=== PATIENT | male | born 1980 | race Two or more races ===

== ENCOUNTER 2022-09-11 16:43 | Inpatient (IN) | payer MEDICAID ==
[2022-09-11] VITALS (16 sets, daily range): BP systolic 82–206; BP diastolic 47–154
[~2022-09-11] VITALS: Ht 175.3 cm; Wt 73.9 kg
[2022-09-11] MEDS ORDERED: IV NS 0.9% 1,000 ML BAG IV ONE ×2 (17:00→19:00)
[2022-09-11] MEDS ORDERED: NOREPINEPHRINE 8 MG in IV NS 0.9% 250 ML IV ONE (17:00)
--- NOTE | 2022-09-11 17:40 | NUR ---
UA AND COVID SWAB SENT TO LAB
[2022-09-11 17:51] LABS: ABG BASE EXCESS -4.3 mmol/L; ABG PCO2 60.2 mmHg (35.0-45.0); ABG PH 7.212 (7.350-7.450); ABG PO2 119.8 mmHg (75.0-100.0); COHb 0.2 % (0.5-1.5); MetHb 0.5 % (0.0-1.5); O2Hb 96.5 % (94.0-97.0); PEEP,BG 5 cm H2O; SITE, ABG Left Radial; VT, ABG 500 mL
[2022-09-11 17:58] LABS: BASOPHILS % (AUTO) 0.2 % (0.0-2.0); EOSINOPHILS % (AUTO) 2.4 % (0.0-6.0); HEMATOCRIT 26 % (39-51); HEMOGLOBIN 7.9 g/dL (13.5-17.5); LYMPHOCYTES # (AUTO) 1.1 K/uL (0.8-4.8); LYMPHOCYTES % (AUTO) 15.6 % (20.0-44.0); MEAN CORPUSCULAR HGB CONC 30 g/dl (31.0-36.0); MEAN CORPUSCULAR VOLUME 88 fL (80-96); MONOCYTES # (AUTO) 0.4 K/uL (0.1-1.30); MONOCYTES % (AUTO) 5.5 % (2.0-12.0); NEUTROPHILS # (AUTO) 5.4 K/uL (1.8-8.9); NEUTROPHILS % (AUTO) 76.3 % (43.0-81.0); PLATELET COUNT (AUTO) 314 K/uL (150-450); WHITE BLOOD COUNT (AUTO) 7.1 K/uL (4.3-11.0)
--- NOTE | 2022-09-11 18:05 | NUR ---
BROTHER JUVE [phone] CALLED AND ASKED TO NOTIFIED WHEN HE CAN COME TO VISIT PATIENT
[2022-09-11 18:17] LABS: ALANINE AMINOTRANSFERASE 41 U/L (12-78); ALBUMIN 2.2 g/dL (3.4-5.0); ALKALINE PHOSPHATASE 119 U/L (46-116); ASPARTATE AMINOTRANSFERASE 21 U/L (15-37); BILIRUBIN,DIRECT 0.1 mg/dL (0.0-0.2); BILIRUBIN,TOTAL 0.2 mg/dL (0.2-1.0); CALCIUM, SERUM 9.2 mg/dL (8.5-10.1); CARBON DIOXIDE 25 mmol/L (21-32); CHLORIDE 103 mmol/L (98-107); CREATININE 0.9 mg/dL (0.6-1.3); GLUCOSE 191 mg/dL (74-106); POTASSIUM 4.1 mmol/L (3.5-5.1); SODIUM SERUM 135 mmol/L (136-145); TOTAL PROTEIN, SERUM 6.5 g/dL (6.4-8.2); UREA NITROGEN, BLOOD 45 mg/dL (7-18)
[2022-09-11 18:18] LABS: BILIRUBIN,URINE NEGATIVE (NEGATIVE); COLOR,URINE YELLOW (YELLOW); LEUKOCYTE ESTERASE ,URINE NEGATIVE (NEGATIVE); NITRITE, URINE NEGATIVE (NEGATIVE); PROTEIN,URINE 1+ mg/dl (NEGATIVE); UGLUCOSE NEGATIVE (NEGATIVE); UROBILINOGEN,URINE 0.2 EU/dL (0.2)
--- NOTE | 2022-09-11 18:25 | NUR ---
PATIENT CAME IN UN RESPONSIVE WHILE BEEN BAGGED BY THE PARAMEDICS. PATIENT WAS PLACED ON THE VENTILATOR PER DOCTOR ORDER. PATIENT CAME IN WITH TRACH SHILEY 7.[address] AND SECURED FROM A SUB ACUTE. Addendum: 09/11/22 at 1828 by HUMERA VIVEROS RT Amended: Links added.
[2022-09-11] MEDS ORDERED: CEFTRIAXONE 1GM BAG (ER ONLY) 50 ML IV ONE ×2 (18:30→19:38)
[2022-09-11 18:51] LABS: RBC,URINE TOO NUMEROUS TO COUN /HPF (0-2); WBC,URINE 0-2 /HPF (0-3)
[2022-09-11 18:52] LABS: BACTERIA,URINE RARE /HPF (None Seen); COARSE GRANULAR CASTS,URINE Few /LPF (None Seen); HYALINE CASTS, URINE Few /LPF (None Seen); SQUAMOUS EPITHELIAL CELL,UR 0-2 /HPF (None Seen)
--- NOTE | 2022-09-11 19:19 | NUR ---
RN LAND ACQUISITION SPECIALIST NOTIFIED OF CRASH CART USE, CART DRAWER CURRENTLY PRESENT ON UNIT
[2022-09-11] MEDS ORDERED: PIPERACILLIN /TAZOBACTAM 3.375 G in IV D5W 50 ML IV ONE (19:30)
[2022-09-11] MEDS ORDERED: VANCOMYCIN 1 GM in IV D5W 250 ML IV ONE (19:30)
--- NOTE | 2022-09-11 19:47 | NUR ---
SHAN #[id number] MIDLINE S/L INSERTED BY MIDLINE NURSE.
--- NOTE | 2022-09-11 19:50 | NUR ---
JUVE (BROTHER) RACHEL (FRIEND) [phone]
[2022-09-11 19:51] LABS: BAND % (MANUAL) 1 % (0.0-5.0); EOSINOPHILS % (MANUAL) 3 % (0-4); LYMPHOCYTES % (MANUAL) 16 % (16-48); MONOCYTES % (MANUAL) 4 % (0-11.0); NEUTROPHILS % (MANUAL) 76 (42-76)
[2022-09-11] MEDS ORDERED: VANCOMYCIN 1 GM VIAL ONE (19:51)
[2022-09-11] MEDS ORDERED: PIPERACILLIN /TAZOBACTAM 3.375 G VIAL IV ONE (19:52)
[2022-09-11] MEDS ORDERED: ALBUTEROL FS 2.5 MG/0.5 ML VIAL.NEB NEB PRN (20:00)
[2022-09-11] MEDS ORDERED: ONDANSETRON HCL/PF 4 MG/2 ML VIAL IVP PRN (20:00)
[2022-09-11] MEDS ORDERED: DEXTROSE 50%-WATER 50 ML DISP.SYRIN IV PRN (20:00)
[2022-09-11] MEDS ORDERED: INSULIN REGULAR, HUMAN 100 UNIT/ML 3 ML VIAL SQ PRN (20:00)
[2022-09-11] MEDS ORDERED: MORPHINE SULFATE INJ 2 MG/ML DISP.SYRIN IV PRN (20:00)
[2022-09-11] MEDS ORDERED: ACETAMINOPHEN 325 MG TABLET PO PRN (20:00)
--- NOTE | 2022-09-11 20:25 | NUR ---
PT RETURNED TO ER [address]
--- NOTE | 2022-09-11 21:12 | NUR ---
REPORT GIVEN TO ED CLERK GUIDE FOR [place]
[2022-09-11] MEDS ORDERED: CEFEPIME 2 GM in IV D5W 100 ML IV SCH (21:30)
[2022-09-11] MEDS ORDERED: VANCOMYCIN 1 GM in IV D5W 250ml IV ONE (21:30)
--- NOTE | 2022-09-11 21:35 | NUR ---
PT TRANSFERRED TO ICU 255 VIA ACLS PROTOCOL. ON LEVO DRIP AT 0.05MCG/KG/HR. CARLOS (EMILY) [phone] AWARE OF TRANSFER.
--- NOTE | 2022-09-11 21:46 | NUR ---
RT NOTE PT IS TRACH'D VIA GocellaLEY 7.5 TRACH TUBE. RECEIVED ON VENT W SETTINGS: AC 15,550,100%,+5. PT TRANSPORTED TO CT. PT ALSO TRANSFERRED TO ICU 255. VENT IS PLUGGED INTO RED OUTLET. ALARMS ARE SET. TRACH IS SECURE. PT SUCTIONED FOR SMALL THICK SECRETIONS. Addendum: 09/11/22 at 2149 by JOSS WILSON RT Amended: Links added.
[2022-09-12] VITALS (98 sets, daily range): BP systolic 67–202; BP diastolic 40–138
[2022-09-12] MEDS ORDERED: BLOOD SUGAR DIAGNOSTIC 1 EACH STRIP IN SCH
[2022-09-12] MEDS ORDERED: IPRATROPIUM/ALBUTEROL INHALER IH SCH
[2022-09-12] MEDS ORDERED: VANCOMYCIN 1 GM VIAL ONE (00:07)
[2022-09-12] MEDS ORDERED: FUROSEMIDE 40 MG/4 ML VIAL IV ONE (00:30)
[2022-09-12] MEDS ORDERED: CEFEPIME 1 GM VIAL ONE (00:32)
[2022-09-12 00:40] LABS: ABG BASE EXCESS 0.6 mmol/L; ABG OXYGEN SATURATION 97.8 % (92.0-98.5); ABG PCO2 44.9 mmHg (35.0-45.0); ABG PO2 110.9 mmHg (75.0-100.0); AaDO2 557.2 mmHg; COHb 0.3 % (0.5-1.5); MetHb 0.2 % (0.0-1.5); O2Hb 97.3 % (94.0-97.0); PEEP,BG 8 cm H2O; SITE, ABG Left Radial; VENT MODE, BG AC 20 550 100% +8; VT, ABG 550 mL
[2022-09-12] MEDS: ALBUTEROL FS 2.5 MG/0.5 ML VIAL.NEB NEB SCH ×4 (01:13→20:00)
[2022-09-12] MEDS: IPRATROPIUM NEB FS 0.5 MG/2.5 ML AMPUL.NEB IH SCH ×4 (01:13→19:59)
[2022-09-12] MEDS ORDERED: DOPamine 400 MG/D5W 250 ML RTU BAG IV PRN (01:30)
[2022-09-12 04:55] LABS: BASOPHILS % (AUTO) 0.2 % (0.0-2.0); EOSINOPHILS % (AUTO) 1.1 % (0.0-6.0); HEMATOCRIT 28 % (39-51); HEMOGLOBIN 9.1 g/dL (13.5-17.5); LYMPHOCYTES # (AUTO) 0.9 K/uL (0.8-4.8); LYMPHOCYTES % (AUTO) 8.3 % (20.0-44.0); MEAN CORPUSCULAR HGB CONC 32 g/dl (31.0-36.0); MEAN CORPUSCULAR VOLUME 83 fL (80-96); MONOCYTES # (AUTO) 0.6 K/uL (0.1-1.30); MONOCYTES % (AUTO) 5.4 % (2.0-12.0); NEUTROPHILS # (AUTO) 9.1 K/uL (1.8-8.9); PLATELET COUNT (AUTO) 339 K/uL (150-450); WHITE BLOOD COUNT (AUTO) 10.7 K/uL (4.3-11.0)
[2022-09-12 05:19] LABS: ALBUMIN 2.3 g/dL (3.4-5.0); BILIRUBIN,TOTAL 0.2 mg/dL (0.2-1.0); CALCIUM, SERUM 9.3 mg/dL (8.5-10.1); CREATININE 0.6 mg/dL (0.6-1.3); MAGNESIUM 2.1 mg/dL (1.8-2.4); PHOSPHORUS 3.9 mg/dL (2.5-4.9); POTASSIUM 3.9 mmol/L (3.5-5.1)
--- NOTE | 2022-09-12 05:56 | NUR ---
CENTER MEDICAL SPECIALIST PT WAS ADMITTED FROM ER WITH DIAGNOSIS SEPSIS, PNA. PT IS TRACH, VENT, PEG PT. VENT SETTING-AC 20, TV 550, FIO2-100%, PEEP 8. BILAT. RHONCHI, SMALL AMT. OF WHITISH SECRETION. PT IS OBTUNDED, RESPONSE TO PAINFUL STIMULI ONLY. SCOPE-SR-SB. PT IS ON DOPAMINE DRIP D/T HYPOTENSION & BRADYCARDIA. UNFORTUNATELY DOPAMINE DRIP IV FLOW SHEET CHARTING CAN NOT BE DONE. F/C DRAINS LARGE AMT. OF CLOUDY WITH SEDIMENT YELLOW URINE. PT GOT LARGE PASTY BROWNISH COLOR BM. PT IS MEDICATED ORDERED. LARGE INFECTED WOUND ON SACRAL AREA, PICTURE TAKEN, A NEW DRESSING APPLIED. WILL CONTINUE CLOSE MONITORING.
[2022-09-12] MEDS: DOPamine 400 MG in IV D5W 250 ML IV PRN ×2 (07:00→16:07)
[2022-09-12] MEDS ORDERED: DOPamine 400 MG/D5W 250 ML RTU BAG IV ONE ×2 (07:00)
[2022-09-12] MEDS: CEFEPIME 2 GM in IV D5W 100 ML IV SCH ×3 (07:29→20:19)
[2022-09-12] MEDS ORDERED: CEFEPIME 2 GM in IV D5W 100 ML IV SCH ×4 (08:00→12:00)
--- NOTE | 2022-09-12 08:00 | NUR ---
RN NOTES RECEIVED PATIENT TRACHEA/VENT DEPENDENT, VENT SETTING-AC 20, TV 550, FIO2-80%, PEEP 5. PATIENT GETTING ECHO AT THIS TIME BEDSIDE EF- 55-60%. ABG DONE, NO ACUTE RESPIRATORY DISTRESS, PATIENT HAS OF WHITISH SECRETION, EYES OBTUNDED, RESPONSE TO PAINFUL STIMULI ONLY. PT IS ON DOPAMINE 5 MCG/KG/MIN DRIP D/T HYPOTENSION & BRADYCARDIA. TORRES DRAINING WITH SEDIMENT URINE OUTPUT. PATIENT HAS LARGE INFECTED WOUND ON SACRAL AREA DRESSING INTACT, ASSIST TURN AND REPOSTION Q 2 HR, PATIENT ON ANY HUGGER T-97F. WILL MONITORING.
--- NOTE | 2022-09-12 08:30 | NUR ---
RN NOTES PATIENT FAMILY NEXT TO THE BED, PATIENT FULL CODE, SEEN RAIL CAR MAINTENANCE MECHANIC , AND GET CHANGE SETTING FI02-40%, PEEP-5. SUCTION MOUTH CARE DONE. WILL FOLLOW UP.
[2022-09-12] MEDS ORDERED: ENOX40DI SQ (08:35)
[2022-09-12] MEDS ORDERED: ACET-2605 GT (08:35)
[2022-09-12] MEDS ORDERED: ALBU8.5H8 IH ×2 (08:35)
[2022-09-12] MEDS ORDERED: COLL30OI TP (08:35)
[2022-09-12] MEDS ORDERED: MULT-447 GT (08:35)
[2022-09-12] MEDS ORDERED: POVI3780 TP (08:35)
[2022-09-12] MEDS ORDERED: XEROFORM TD (08:35)
[2022-09-12] MEDS ORDERED: COLLAGEN TD (08:35)
[2022-09-12] MEDS ORDERED: POLY17PO4 GT (08:35)
[2022-09-12] MEDS ORDERED: ACET650S26 GT (08:35)
[2022-09-12] MEDS ORDERED: ASCO-340 GT (08:35)
[2022-09-12] MEDS ORDERED: HEPA50007 SQ (08:35)
[2022-09-12] MEDS ORDERED: LEVE100S GT (08:35)
[2022-09-12] MEDS ORDERED: CHLO473M5 MM (08:35)
[2022-09-12] MEDS ORDERED: DOCU-141 GT (08:35)
[2022-09-12] MEDS ORDERED: ZINC220C6 GT (08:35)
[2022-09-12] MEDS ORDERED: LACT100027 GT (08:35)
[2022-09-12] MEDS ORDERED: CLON0.1T GT (08:35)
[2022-09-12] MEDS ORDERED: FAMO20TA8 GT (08:35)
[2022-09-12] MEDS ORDERED: LISI20TA30 GT (08:35)
[2022-09-12] MEDS ORDERED: FERR300L GT (08:35)
[2022-09-12] MEDS ORDERED: NA P133E RC (08:35)
[2022-09-12] MEDS ORDERED: BISA10SU11 RC (08:35)
--- NOTE | 2022-09-12 11:32 | NUR ---
RN NOTES SEEN PATIENT VIA HOSPITALIST Dr BELL . PER HOSPITALIST SPOKE FAMILY MEMBERS, AND EXPLAINED PLAN OF CARE.
[2022-09-12] MEDS: VANCOMYCIN 1 GM in IV D5W 250 ML IV SCH ×2 (13:06→20:35)
--- NOTE | 2022-09-12 18:30 | NUR ---
RN NOTES PM CARE DONE, SUCTION, MOUTH CARE, NO ACUTE RESPIRATORY DISTRESS, VSS, TOLERATING SETTING WELL. INFUSING DOPAMINE 5 MCG/KG/MIN. URINE OUTPUT WAS 680 ML. ASSIST TURN AND REPOSTION Q 2 HR. ENDORSED ONCOMING NURSE [place].
[2022-09-13] VITALS (88 sets, daily range): BP systolic 61–178; BP diastolic 31–105
[2022-09-13] MEDS: IPRATROPIUM NEB FS 0.5 MG/2.5 ML AMPUL.NEB IH SCH ×4 (01:46→19:54)
[2022-09-13] MEDS: ALBUTEROL FS 2.5 MG/0.5 ML VIAL.NEB NEB SCH ×4 (01:46→19:54)
[2022-09-13] MEDS: DOPamine 400 MG in IV D5W 250 ML IV PRN ×2 (03:22→20:46)
[2022-09-13] MEDS: CEFEPIME 2 GM in IV D5W 100 ML IV SCH ×3 (04:08→20:23)
[2022-09-13 04:12] LABS: BASOPHILS # (AUTO) 0.1 K/uL (0.0-0.2); BASOPHILS % (AUTO) 0.7 % (0.0-2.0); EOSINOPHILS % (AUTO) 3.6 % (0.0-6.0); HEMATOCRIT 25 % (39-51); HEMOGLOBIN 8.1 g/dL (13.5-17.5); LYMPHOCYTES # (AUTO) 0.7 K/uL (0.8-4.8); LYMPHOCYTES % (AUTO) 10.8 % (20.0-44.0); MEAN CORPUSCULAR HGB CONC 33 g/dl (31.0-36.0); MEAN CORPUSCULAR VOLUME 82 fL (80-96); MONOCYTES # (AUTO) 0.4 K/uL (0.1-1.30); MONOCYTES % (AUTO) 6.5 % (2.0-12.0); NEUTROPHILS # (AUTO) 5.3 K/uL (1.8-8.9); NEUTROPHILS % (AUTO) 78.4 % (43.0-81.0); PLATELET COUNT (AUTO) 353 K/uL (150-450); RED BLOOD CELL COUNT(AUTO) 3.01 MIL/uL (4.5-6.0); WHITE BLOOD COUNT (AUTO) 6.8 K/uL (4.3-11.0)
[2022-09-13] MEDS: VANCOMYCIN 1 GM in IV D5W 250 ML IV SCH (05:00)
[2022-09-13 05:04] LABS: CALCIUM, SERUM 9.2 mg/dL (8.5-10.1); CREATININE 0.6 mg/dL (0.6-1.3); MAGNESIUM 1.9 mg/dL (1.8-2.4); PHOSPHORUS 3.5 mg/dL (2.5-4.9); POTASSIUM 3.6 mmol/L (3.5-5.1)
[2022-09-13] MEDS: IV NS 0.9% 250 ML IV PRN (05:06)
--- NOTE | 2022-09-13 07:49 | NUR ---
WOUND CARE CONSULT: PT PRESENTS WITH SACRAL FOUL PURULENT UNSTAGEABLE PRESSURE ULCER, OCCIPITAL AND LEFT EAR DEEP TISSUE INJURIES, DRY SCABS/SCARRING TO BACK AND SCARRING TO BILATERAL ANKLES WITH GENERALIZED EDEMA, ALL PRESENT ON ADMISSION. DR STOKES CALLED FOR SURGICAL CONSULT. DISCUSSED SKIN PROTECTION WITH NURSING STAFF. PT IS ON HA ISOFLEX LOW AIRLOSS BED. IN AGREEMENT WITH PLAN OF CARE. Addendum: 09/13/22 at 0751 by KINSEY SANTANA WNDNU Amended: Links added.
--- NOTE | 2022-09-13 08:00 | NUR ---
RN NOTES RECEIVED PATIENT AWAKE,EYES OPEN, TRACHEA/VENT DEPENDENT, SETTING FIO2-40%, PEEP-5, SR -66 ON BEDSIDE MONITOR, PATIENT ON DOPAMINE DRIP 5 MG/ML/HR. ASSIST TURN AND REPOSTION Q 2HR, PATIENT HAS LATS OF ORAL SECRETION, SUCTION , MOUTH CQARE DONE. SEEN PATIENT VIA WOUND NURSE.PATIENT HAS GENERALIZED EDEMA. WILL FOLLOW UP.
--- NOTE | 2022-09-13 08:11 | NUR ---
rn notes get order via Dr Sanz start tub feeding Jevity @20 ml/hr. order taken and carried out.
[2022-09-13] MEDS ORDERED: DAKINS QUARTER STRENGTH (0.125%) 480 ML BOTTLE TOP SCH (09:00)
[2022-09-13] MEDS: Z GUARD REMEDY 4 OZ OINT TP SCH (09:28)
[2022-09-13] MEDS ORDERED: ATROPINE SULFATE 1 MG/10 ML DISP.SYRIN IV ONE (10:00)
--- NOTE | 2022-09-13 10:00 | NUR ---
rn notes held dopamine per Dr Landry's order bp 122/80, p-62, r-23.
[2022-09-13] MEDS ORDERED: NALOXONE HCL 0.4 MG/ML AMPUL IV ONE (10:04)
[2022-09-13] MEDS ORDERED: DEXTROSE 50%-WATER 50 ML VIAL IV ONE (10:04)
--- NOTE | 2022-09-13 12:00 | NUR ---
rn notes restarted dopamine drip back 5mg/kg/min because low bp 68/41, p-70.
[2022-09-13] MEDS: VANCOMYCIN 1.25 GM in IV D5W 250 ML IV SCH ×2 (12:21→23:35)
[2022-09-13] MEDS ORDERED: POLYETHYLENE GLYCOL 3350 17 GM POWD.PACK GT PRN (12:30)
[2022-09-13] MEDS ORDERED: NA PHOS,M-B/NA PHOS,DI-BA 1 EA ENEMA RC PRN (12:30)
[2022-09-13] MEDS: JEVITY 1.2 CAL 1,000 ML BOTTLE GT PRN (12:32)
[2022-09-13] MEDS: ENOXAPARIN SODIUM 40 MG/0.4 ML DISP.SYRIN SQ SCH (13:49)
[2022-09-13] MEDS: ASCORBIC ACID 500 MG TABLET GT SCH (17:31)
[2022-09-13] MEDS: FERROUS SULFATE (325 MG) 325 MG/TAB TABLET GT SCH (17:31)
--- NOTE | 2022-09-13 18:40 | NUR ---
RN NOTES PATIENT PM CARE DONE, SUCTION, DUE MEDICATION ADMINISTERED, TOLERATING VENT SETTING WELL, NO ACUTE RESPIRATORY DISTRESS,INFUSING DOPAMINE 5 MG/KG/MIN, AND RUNNING JEVITY 20 ML/HR INTACT. KEEP HOB ELEVATED FOR ASPIRATION PRECAUTION. ASSIST TURN AND REPOSITION Q 2 HR. ENDORSED ONCOMING NURSE FOLLOW PLAN OF CARE.
--- NOTE | 2022-09-13 19:30 | NUR ---
RN OPENING NOTES RECEIVED PATIENT TRACHEA/VENT DEPENDENT, VENT SETTING-AC 20, TV 550, FIO2-33%, PEEP 5. NO ACUTE RESPIRATORY DISTRESS, EYES OBTUNDED, RESPONSE TO PAINFUL STIMULI. PT IV ACCESS ON SHAN ML ON DOPAMINE 5 MCG/KG/MIN DRIP D/T HYPOTENSION & BRADYCARDIA. TORRES CATHETER DRAINING WITH URINE OUTPUT. PATIENT HAS LARGE INFECTED WOUND ON SACRAL AREA DRESSING INTACT, ASSIST TURN AND REPOSITION Q2 HR, SAFETY MEASURES IN PLACE, FAMILY MEMBER AT BEDSIDE, WILL CONTINUE TO MONITOR THROUGHOUT THE SHIFT.
[2022-09-13] MEDS: LEVETIRACETAM SOL (5 ML) 100 MG/ML UDC GT SCH (20:22)
[2022-09-13] MEDS: FAMOTIDINE (20 MG) 20 MG TABLET GT SCH (20:22)
--- NOTE | 2022-09-13 21:30 | NUR ---
RN NOTE NOTED PT WITH 200 CC RESIDUAL, ZOFRAN GIVEN. INFORMED MUSHROOM PRESS OPERATOR MD, ORDERED TO HELD FEEDING FOR NOW, START 20 ML/HR IN AM AND PLACE PT ON LOW INTERMITTENT SUCTION. MD AWARE PT HAD NO IVF AT THIS TIME.
[2022-09-13] MEDS: DAKINS QUARTER STRENGTH (0.125%) 480 ML BOTTLE TOP SCH (21:46)
[2022-09-14] VITALS (58 sets, daily range): BP systolic 76–151; BP diastolic 32–102
--- NOTE | 2022-09-14 | NUR ---
RN NOTE TELEPHONE CONSENT OBTAINED FOR SERIAL DEBRIDEMENT ON SACRAL AND SCALP. SPOKE TO CONNOR APONTE (BROTHER), WITNESSED BY PRINCESS WILSON.
[2022-09-14] MEDS: ALBUTEROL FS 2.5 MG/0.5 ML VIAL.NEB NEB SCH ×4 (01:24→20:04)
[2022-09-14] MEDS: IPRATROPIUM NEB FS 0.5 MG/2.5 ML AMPUL.NEB IH SCH ×4 (01:24→20:04)
[2022-09-14 03:53] LABS: BASOPHILS % (AUTO) 0.2 % (0.0-2.0); EOSINOPHILS % (AUTO) 3.7 % (0.0-6.0); HEMATOCRIT 26 % (39-51); HEMOGLOBIN 8.5 g/dL (13.5-17.5); LYMPHOCYTES # (AUTO) 1.1 K/uL (0.8-4.8); LYMPHOCYTES % (AUTO) 16.6 % (20.0-44.0); MEAN CORPUSCULAR HGB CONC 33 g/dl (31.0-36.0); MEAN CORPUSCULAR VOLUME 80 fL (80-96); MONOCYTES # (AUTO) 0.6 K/uL (0.1-1.30); MONOCYTES % (AUTO) 8.7 % (2.0-12.0); NEUTROPHILS # (AUTO) 4.7 K/uL (1.8-8.9); NEUTROPHILS % (AUTO) 70.8 % (43.0-81.0); PLATELET COUNT (AUTO) 388 K/uL (150-450); RED BLOOD CELL COUNT(AUTO) 3.22 MIL/uL (4.5-6.0); WHITE BLOOD COUNT (AUTO) 6.7 K/uL (4.3-11.0)
[2022-09-14 04:26] LABS: CALCIUM, SERUM 9.4 mg/dL (8.5-10.1); CREATININE 0.6 mg/dL (0.6-1.3); MAGNESIUM 1.6 mg/dL (1.8-2.4); PHOSPHORUS 3.8 mg/dL (2.5-4.9); POTASSIUM 3.4 mmol/L (3.5-5.1)
[2022-09-14] MEDS: CEFEPIME 2 GM in IV D5W 100 ML IV SCH ×3 (05:16→21:00)
[2022-09-14] MEDS: IV NS 0.9% 250 ML IV PRN (05:16)
[2022-09-14] MEDS ORDERED: LIDOCAINE 1%-EPI 1:100,000 50 ML VIAL IJ ONE (06:00)
[2022-09-14] MEDS ORDERED: SILVER NITRATE APPLICATOR 1 EA BOX TP SCH (06:00)
--- NOTE | 2022-09-14 06:42 | NUR ---
RN CLOSING NOTES PATIENT ON BED OBTUNDED, RESPONSIVE TO PAINFUL STIMULI. VENT SETTING-AC 20, TV 550, FIO2-40%, PEEP 5 TOLERATING WELL, NO ACUTE RESPIRATORY DISTRESS, PT IV ACCESS ON JAMES ML AND SHAN ML RUNNING DOPAMINE 5 MCG/KG/MIN DRIP D/T HYPOTENSION & BRADYCARDIA. GT FEEDING OF JEVITY AT 20 ML/HR RESTARTED AT 0600 PER MD ORDER, N0 RESIDUAL NOTED AT THIS TIME, TORRES CATHETER DRAINING WITH URINE OUTPUT. ALL DUE MEDS GIVEN, KEPT DRY AND CLEAN, TURN AND REPOSITION Q2 HR, SAFETY MEASURES IN PLACE, WILL ENDORSE TO AM SHIFT NURSE FOR CONTINUITY OF CARE.
--- NOTE | 2022-09-14 07:30 | NUR ---
RN OPENING NOTE PT RECEIVED IN BED WITH HOB >30 DEGREES. PT IS ON MECHANICAL VENT WITH ALL PRESCRIBED SETTINGS TOLERATING WELL O2 SAT 97%. PT IS OBTUNDED AND OPENS EYES PERIODICALLY. PEG IS IN PLACE WITH POSITIVE PLACEMENT INFUSING WITH JEVITY 1.2 @20ML/HR; FC IS IN PLACE DRAINING URINE TO GRAVITY. IV ACCESS R UA MIDLINE INFUSING WITH DOPAMINE @5MCG/HR. BED IS LOCKED IN LOWEST POSITION X2 BED RAILS UP AND ALL HOSPITAL SAFETY MEASURES ARE IN PLACE. WILL CONTINUE TO MONITOR THIS SHIFT.
[2022-09-14] MEDS: ENOXAPARIN SODIUM 40 MG/0.4 ML DISP.SYRIN SQ SCH (08:03)
[2022-09-14] MEDS ORDERED: ENOXAPARIN SODIUM 40 MG/0.4 ML DISP.SYRIN SQ SCH (09:00)
[2022-09-14] MEDS ORDERED: MAGNESIUM OXIDE 400 MG TABLET PO ONE (09:00)
[2022-09-14] MEDS: Z GUARD REMEDY 4 OZ OINT TP SCH (09:06)
[2022-09-14] MEDS: METOCLOPRAMIDE HCL 10 MG/2 ML VIAL IV SCH ×3 (09:09→21:00)
[2022-09-14] MEDS: ZINC SULFATE 220 MG CAPSULE GT SCH (09:09)
[2022-09-14] MEDS: LEVETIRACETAM SOL (5 ML) 100 MG/ML UDC GT SCH ×2 (09:09→21:01)
[2022-09-14] MEDS: DAKINS QUARTER STRENGTH (0.125%) 480 ML BOTTLE TOP SCH (09:10)
[2022-09-14] MEDS: FAMOTIDINE (20 MG) 20 MG TABLET GT SCH ×2 (09:10→21:01)
[2022-09-14] MEDS: MULTIVIT W/MINERALS 1 TAB TABLET GT SCH (09:10)
[2022-09-14] MEDS: ACETYLCYSTEINE 10% SOLN 400 MG/4 ML VIAL NEB SCH ×3 (09:30→23:13)
[2022-09-14] MEDS ORDERED: POTASSIUM CHLORIDE 20 MEQ POWDER PACKET NG SCH (09:30)
--- NOTE | 2022-09-14 09:45 | NUR ---
DAISY RN CHANGING TIME REPORT NOTE MOVED FROM DAISY TO ICU TOOK OVER THE PATIENT FROM RN JULIUS. PATIENT ON BED OBTUNDED, VENT SETTING-AC 20, TV 550, FIO2-40%, PEEP 5 TOLERATING WELL, NO ACUTE RESPIRATORY DISTRESS, PT IV ACCESS ON JAMES ML AND SHAN ML RUNNING DOPAMINE 5 MCG/KG/MIN DRIP D/T HYPOTENSION & BRADYCARDIA. GT FEEDING OF JEVITY AT 20 ML/HR. TORRES CATHETER DRAINING. SAFETY MEASURES IN PLACE, WILL CONTINUE THE CARE.
--- NOTE | 2022-09-14 10:00 | NUR ---
RN NOTE: REPORT GIVEN TO COIL TESTER PT REMAINS IN ICU AND REPORT GIVEN TO STEVE JACOME.
[2022-09-14] MEDS: DOPamine 400 MG in IV D5W 250 ML IV PRN (11:34)
--- NOTE | 2022-09-14 14:00 | NUR ---
RN NOTE WOUND DEBRIDEMENT DONE AT PATIENT'S OCCIPITAL AND SACRUM AREA BY CADE AT 1400
[2022-09-14] MEDS: VANCOMYCIN 1.25 GM in IV D5W 250 ML IV SCH ×2 (14:36→23:00)
--- NOTE | 2022-09-14 17:30 | NUR ---
RN NOTE PER DR. ZUÑIGA BP 84/37 IS JONATHAN FOR PATIENT, DR. ZUÑIGA ORDERED TO DC THE DOPAMINE. YENY THE CHARGE NURSE STOPPED THE DOPAMINE AT 1730.
[2022-09-14] MEDS: FERROUS SULFATE (325 MG) 325 MG/TAB TABLET GT SCH (18:07)
[2022-09-14] MEDS: ASCORBIC ACID 500 MG TABLET GT SCH (18:07)
--- NOTE | 2022-09-14 19:00 | NUR ---
RN CLOSING NOTE PATIENT ON BED OBTUNDED, VENT SETTING-AC 20, TV 550, FIO2-40%, PEEP 5 TOLERATING WELL, NO ACUTE RESPIRATORY DISTRESS, PT IV ACCESS ON JAMES ML AND SHAN ML RUNNING TKO 10ML/HR. DOPAMINE DC BY DR. ZUÑIGA AT 1730 BY YENY THE CHARGE NURSE. PER DR. ZUÑIGA BP 84/37 IT IS JONATHAN FOR PATIENT, WILL LET THE PALLETIZER OPERATOR NURSE KNOW ABOUT THE BP MONITORING. GT FEEDING OF JEVITY AT 20 ML/HR. TORRES CATHETER DRAINING. SAFETY MEASURES IN PLACE, WILL ENDORSE THE PATIENT TO THE PALLETIZER OPERATOR NURSE FOR [place].
--- NOTE | 2022-09-14 20:00 | NUR ---
ICU NOTES Received patient obtunded on full vent support as prescribed.Dx:SEPSIS,PNA,ACUTE RESPIRATORY FAILURE.H/O VTDRF,ENCEPHALOPATHY,BRAIN ANEURYSM,SAH,HTN and DYSPHAGIA S/P PEG.Per monitor SR 70's-80's.GT feeding Jevity in progress.No residual noted.Maintain HOB elevated.IVF NS at TKO infusing via SHAN ML site intact.FC to gravity.Turned and repositioned.No acute distress noted.Continue to monitor.
[2022-09-15] VITALS (23 sets, daily range): BP systolic 76–122; BP diastolic 34–75
--- NOTE | 2022-09-15 | NUR ---
ICU NOTES FIRST STEP mattress applied.Ptient turned and repositioned to comfort.
[2022-09-15] MEDS: IPRATROPIUM NEB FS 0.5 MG/2.5 ML AMPUL.NEB IH SCH ×4 (02:18→20:03)
[2022-09-15] MEDS: ALBUTEROL FS 2.5 MG/0.5 ML VIAL.NEB NEB SCH ×4 (02:18→20:03)
[2022-09-15 04:43] LABS: BASOPHILS % (AUTO) 0.4 % (0.0-2.0); EOSINOPHILS % (AUTO) 2.4 % (0.0-6.0); HEMATOCRIT 24 % (39-51); HEMOGLOBIN 7.8 g/dL (13.5-17.5); LYMPHOCYTES # (AUTO) 1.2 K/uL (0.8-4.8); LYMPHOCYTES % (AUTO) 17.5 % (20.0-44.0); MEAN CORPUSCULAR HGB CONC 33 g/dl (31.0-36.0); MEAN CORPUSCULAR VOLUME 80 fL (80-96); MONOCYTES # (AUTO) 0.6 K/uL (0.1-1.30); MONOCYTES % (AUTO) 9.1 % (2.0-12.0); NEUTROPHILS # (AUTO) 4.9 K/uL (1.8-8.9); NEUTROPHILS % (AUTO) 70.6 % (43.0-81.0); PLATELET COUNT (AUTO) 352 K/uL (150-450); RED BLOOD CELL COUNT(AUTO) 2.95 MIL/uL (4.5-6.0)
[2022-09-15] MEDS: METOCLOPRAMIDE HCL 10 MG/2 ML VIAL IV SCH ×3 (04:46→21:47)
[2022-09-15] MEDS: IV NS 0.9% 250 ML IV PRN (04:46)
[2022-09-15] MEDS: CEFEPIME 2 GM in IV D5W 100 ML IV SCH ×3 (04:47→21:47)
[2022-09-15 05:35] LABS: CALCIUM, SERUM 9.3 mg/dL (8.5-10.1); CREATININE 0.8 mg/dL (0.6-1.3); MAGNESIUM 1.9 mg/dL (1.8-2.4); PHOSPHORUS 3.7 mg/dL (2.5-4.9); POTASSIUM 3.7 mmol/L (3.5-5.1)
--- NOTE | 2022-09-15 06:10 | NUR ---
ICU NOTES Patient resting in no acute distess.VS remains stable.SR.Tolerating vent settings and tolerating tube feeding.AM care done.secretions suctioned PRN.Oral care done.Wound care done.Turned and repositioned Q 2 hrs offloading pressure points.No significant changes noted during the shift. Will endorsed to day shift for [place].
[2022-09-15] MEDS: ACETYLCYSTEINE 10% SOLN 400 MG/4 ML VIAL NEB SCH ×3 (08:14→23:38)
[2022-09-15] MEDS: ZINC SULFATE 220 MG CAPSULE GT SCH (08:52)
[2022-09-15] MEDS: MULTIVIT W/MINERALS 1 TAB TABLET GT SCH (08:52)
[2022-09-15] MEDS: FAMOTIDINE (20 MG) 20 MG TABLET GT SCH ×2 (08:52→21:48)
[2022-09-15] MEDS: LEVETIRACETAM SOL (5 ML) 100 MG/ML UDC GT SCH ×2 (08:52→21:47)
[2022-09-15] MEDS: ENOXAPARIN SODIUM 40 MG/0.4 ML DISP.SYRIN SQ SCH (09:00)
--- NOTE | 2022-09-15 09:56 | NUR ---
RN NOTE RECEIVED PATIENT FROM THE RN JENNIFER .Patient is obtunded on full vent support as prescribed.Dx:SEPSIS,PNA,ACUTE RESPIRATORY FAILURE.H/O VTDRF,ENCEPHALOPATHY,BRAIN ANEURYSM,SAH,HTN and DYSPHAGIA S/P PEG.Per monitor SR 70's-80's.GT feeding Jevity running 20 ml/hr No residual noted.Maintain HOB elevated.IVF NS at TKO infusing via SHAN ML site intact.FC to gravity running clear yellow urine . noted left eye redness , Dr Russo ordred CT scan of the head wo contrust Patient had pressure sores of his low back and back of the head , and both ears, will turne and reposition every 2 hr .No acute distress noted.Continue to monitor.
--- NOTE | 2022-09-15 09:58 | NUR ---
rn note endorsed report to Diamond WILSON for contuity of care
--- NOTE | 2022-09-15 10:11 | NUR ---
rn note patient has hemoglobin today 7.9 Dr [place] was notified, order to hold Enoxaparin received
[2022-09-15] MEDS: DAKINS QUARTER STRENGTH (0.125%) 480 ML BOTTLE TOP SCH (10:14)
[2022-09-15] MEDS: Z GUARD REMEDY 4 OZ OINT TP SCH (10:14)
[2022-09-15] MEDS: VANCOMYCIN 1.25 GM in IV D5W 250 ML IV SCH ×2 (10:39→23:17)
--- NOTE | 2022-09-15 16:41 | NUR ---
RN NOTE PATIENT WAS TRANSFERED TO THE DAISY ROOM 122 BED 2 , REPORT WAS GIVEN TO THE RN JENNIFER AT THE BED SIDE
--- NOTE | 2022-09-15 16:45 | NUR ---
rn note received report from Diamond WILSON for contuity of care
[2022-09-15] MEDS: FERROUS SULFATE (325 MG) 325 MG/TAB TABLET GT SCH (18:26)
[2022-09-15] MEDS: ASCORBIC ACID 500 MG TABLET GT SCH (18:26)
[2022-09-15] MEDS: JEVITY 1.2 CAL 1,000 ML BOTTLE GT PRN (18:54)
--- NOTE | 2022-09-15 20:00 | NUR ---
DAISY RN NOTES Received patient in bed obtunded on full vent support as prescribed settings well tolerated sating 100%,On tele monitor sb 55 .GT feeding Jevity in progress at 20cc/hr tolerating well . no residual noted. HOB elevated.SHAN ML and silvia midline intactand patent .FC to gravity.Turned and repositioned.v/s stable afebrile , no sob no distress noted no c/o of pain no facial grimaces noted. all due meds giveb as ordered no adverse side effect noted.will continue to monitor pts. still awaits ct scan head result.spoke to brother by phone updated with pts condition.
--- NOTE | 2022-09-15 20:07 | NUR ---
telemarketer supervisor closing note pt is obtunded and nonverbal. pt is sinus bradycardia and sinus rhytm on tele monitor. pt on mechanical ventilator with ordered settings well. pt li cathether yellow color draining to gravity. pt has right iv arm midline. iv intact,patent and flushing well. pt has gtube intact, patent. no residual volume noted. all safety measures in place. call luight within rech. bed locked at lowest position. asa rails up x2. endorsed to mold shifter rn for contuity of care
[2022-09-16] VITALS: BP 112/75
--- NOTE | 2022-09-16 | NUR ---
DAISY RN NOTES TURNED AND REPOSITIONED THE PT.
[2022-09-16] MEDS: IPRATROPIUM NEB FS 0.5 MG/2.5 ML AMPUL.NEB IH SCH ×4 (01:35→20:09)
[2022-09-16] MEDS: ALBUTEROL FS 2.5 MG/0.5 ML VIAL.NEB NEB SCH ×4 (01:35→20:09)
[2022-09-16 04:00] VITALS: BP 129/83
[2022-09-16] MEDS: METOCLOPRAMIDE HCL 10 MG/2 ML VIAL IV SCH ×3 (04:35→20:41)
[2022-09-16] MEDS: CEFEPIME 2 GM in IV D5W 100 ML IV SCH ×3 (04:35→20:41)
--- NOTE | 2022-09-16 06:41 | NUR ---
DAISY RN CLOSING NOTES Pts REMAIN ON SAME VENT SETTING ORDERED TOLERATING WELL CONTINUE ON GT FEEDING JEVITY AT 20CC/HR WELL TOLERATED BY PTS. STILL AWAITING RESULT HEAD CT RESULT WILL ENDORSE TO RN DAY SHIFT FOR CONTINUITY OF CARE.
[2022-09-16 06:49] LABS: BASOPHILS % (AUTO) 0.5 % (0.0-2.0); EOSINOPHILS % (AUTO) 6.3 % (0.0-6.0); HEMATOCRIT 27 % (39-51); HEMOGLOBIN 8.5 g/dL (13.5-17.5); LYMPHOCYTES # (AUTO) 1.1 K/uL (0.8-4.8); LYMPHOCYTES % (AUTO) 20.4 % (20.0-44.0); MEAN CORPUSCULAR HGB CONC 32 g/dl (31.0-36.0); MEAN CORPUSCULAR VOLUME 82 fL (80-96); MONOCYTES # (AUTO) 0.5 K/uL (0.1-1.30); MONOCYTES % (AUTO) 9.4 % (2.0-12.0); NEUTROPHILS # (AUTO) 3.5 K/uL (1.8-8.9); NEUTROPHILS % (AUTO) 63.4 % (43.0-81.0); PLATELET COUNT (AUTO) 339 K/uL (150-450); RED BLOOD CELL COUNT(AUTO) 3.23 MIL/uL (4.5-6.0); WHITE BLOOD COUNT (AUTO) 5.6 K/uL (4.3-11.0)
[2022-09-16 07:21] LABS: CALCIUM, SERUM 9.8 mg/dL (8.5-10.1); CREATININE 0.8 mg/dL (0.6-1.3); MAGNESIUM 2.2 mg/dL (1.8-2.4); PHOSPHORUS 4.6 mg/dL (2.5-4.9); POTASSIUM 3.6 mmol/L (3.5-5.1)
--- NOTE | 2022-09-16 07:21 | NUR ---
RN OPEN NOTE PATIENT ON BED OBTUNDED, ON MECHNICAN VINT TOLERATING WELL O2 SAT 96%, NO ACUTE RESPIRATORY DISTRESS, PATIENT HAS IV ACCESS ON JAMES ML AND SHAN ML , HAS TORRES IN PLACE RUNNING CLEAR YELLOW URINE , GT FEEDING OF JEVITY AT 20 ML/HR. SAFETY MEASURES IN PLACE,BED IS AT LOWEST POSITION , CALL LIGHT WITHIN REACH , BED ALARM IS ON .PATIENT HAS DTI ON THE LOW BACK , BACK OF THE HEAD AND BILATERAL EARS WILL CONTINUE TO MONITOR
[2022-09-16] MEDS: ACETYLCYSTEINE 10% SOLN 400 MG/4 ML VIAL NEB SCH ×3 (07:45→23:46)
[2022-09-16 08:00] VITALS: BP 137/72
[2022-09-16] MEDS: MULTIVIT W/MINERALS 1 TAB TABLET GT SCH (08:50)
[2022-09-16] MEDS: ZINC SULFATE 220 MG CAPSULE GT SCH (08:50)
[2022-09-16] MEDS: LEVETIRACETAM SOL (5 ML) 100 MG/ML UDC GT SCH ×2 (08:50→20:41)
[2022-09-16] MEDS: FAMOTIDINE (20 MG) 20 MG TABLET GT SCH ×2 (08:50→20:41)
[2022-09-16] MEDS: ENOXAPARIN SODIUM 40 MG/0.4 ML DISP.SYRIN SQ SCH (08:51)
[2022-09-16] MEDS: Z GUARD REMEDY 4 OZ OINT TP SCH (08:54)
[2022-09-16] MEDS: DAKINS QUARTER STRENGTH (0.125%) 480 ML BOTTLE TOP SCH (09:22)
[2022-09-16] MEDS: VANCOMYCIN 1.25 GM in IV D5W 250 ML IV SCH ×2 (10:37→22:36)
[2022-09-16 12:00] VITALS: BP 113/72
[2022-09-16 17:15] VITALS: BP 100/66
[2022-09-16] MEDS: PROSOURCE / PROSTAT (PYXIS) 30 ML UDC GT SCH (17:22)
[2022-09-16] MEDS: ASCORBIC ACID 500 MG TABLET GT SCH (17:22)
[2022-09-16] MEDS: FERROUS SULFATE (325 MG) 325 MG/TAB TABLET GT SCH (17:22)
--- NOTE | 2022-09-16 18:39 | NUR ---
RN CLOSING NOTE PATIENT ON BED OBTUNDED, ON MECHANICAL VENT TOLERATING WELL O2 SAT 96%, NO ACUTE RESPIRATORY DISTRESS, PATIENT HAS IV ACCESS ON JAMES ML AND SHAN ML , HAS TORRES IN PLACE RUNNING CLEAR YELLOW URINE , GT FEEDING OF JEVITY AT 20 ML/HR GOAL TO 60 ML/HR SAFETY MEASURES IN PLACE,BED IS AT LOWEST POSITION , CALL LIGHT WITHIN REACH , BED ALARM IS ON .PATIENT HAS DTI ON THE LOW BACK , BACK OF THE HEAD AND BILATERAL EARS , ALL MEDICATIONS WERE ADMINISTERED , ALL NEEDS WERE MET .WILL ENDORSE RISK COMPLIANCE MANAGER NURSE TO FALLOW POC
--- NOTE | 2022-09-16 19:30 | NUR ---
SIDE LASTER OPENING NOTES RECEIVED PATIENT IN BED WITH CLOSED EYES. PATIENT IS NONVERBAL. OPEN HIS EYES UPON TACTILE STIMULI. NO PAIN NOTED. NO DISTRESS NOTED. NO FACIAL GRIMACING NOTED. ON TELE MONITOR READING SR. ON VENT SETTING TOLERATING WELL. NO RESPIRATORY DISTRESS NOTED. BREATHING EVEN AND UNLABORED. ON G-TUBE FEEDING OF JEVITY 1.2 CURRENTLY AT 25 ML/HR. THE GOAL IS 60 ML/HR TOLERATED. G-TUBE PLACEMENT CHECKED IN PLACE. NO RESIDUAL NOTED. FLUSHED WITH WATER . IV ACCESS ON THE SHAN MIDLINE AND JAMES MIDLINE INTACT. TORRES CATHETER INTACT AND DRAINING YELLOW COLOR URINE. ALL SAFETY MEASURES IN PLACE. BED LOCKED IN THE LOWEST POSITION . HEAD OF THE BED ELEVATED FOR ASPIRATION PRECAUTION. SIDE RAILS UP TIMES 2. WILL CONTINUE TO MONITOR CLOSELY.
[2022-09-16 20:35] VITALS: BP 110/57
[2022-09-17 00:29] VITALS: BP 111/60
[2022-09-17] MEDS: ALBUTEROL FS 2.5 MG/0.5 ML VIAL.NEB NEB SCH ×4 (01:53→20:15)
[2022-09-17] MEDS: IPRATROPIUM NEB FS 0.5 MG/2.5 ML AMPUL.NEB IH SCH ×4 (01:53→20:15)
[2022-09-17 04:00] VITALS: BP 115/70
[2022-09-17] MEDS: CEFEPIME 2 GM in IV D5W 100 ML IV SCH ×3 (04:16→21:35)
[2022-09-17] MEDS: METOCLOPRAMIDE HCL 10 MG/2 ML VIAL IV SCH ×3 (04:16→21:35)
[2022-09-17 05:57] LABS: BASOPHILS % (AUTO) 0.4 % (0.0-2.0); EOSINOPHILS % (AUTO) 4.6 % (0.0-6.0); HEMATOCRIT 27 % (39-51); HEMOGLOBIN 8.7 g/dL (13.5-17.5); LYMPHOCYTES # (AUTO) 1.4 K/uL (0.8-4.8); LYMPHOCYTES % (AUTO) 19.9 % (20.0-44.0); MEAN CORPUSCULAR HGB CONC 33 g/dl (31.0-36.0); MEAN CORPUSCULAR VOLUME 81 fL (80-96); MONOCYTES # (AUTO) 0.6 K/uL (0.1-1.30); MONOCYTES % (AUTO) 8.4 % (2.0-12.0); NEUTROPHILS # (AUTO) 4.7 K/uL (1.8-8.9); NEUTROPHILS % (AUTO) 66.7 % (43.0-81.0); WHITE BLOOD COUNT (AUTO) 7.1 K/uL (4.3-11.0)
[2022-09-17 06:25] LABS: CALCIUM, SERUM 9.2 mg/dL (8.5-10.1); MAGNESIUM 1.8 mg/dL (1.8-2.4); PHOSPHORUS 4.4 mg/dL (2.5-4.9); POTASSIUM 3.6 mmol/L (3.5-5.1)
--- NOTE | 2022-09-17 06:31 | NUR ---
BURGLAR ALARM INSPECTOR CLOSING NOTES PATIENT IN BED WITH CLOSED EYES. PATIENT IS NONVERBAL. OPEN HIS EYES UPON TACTILE STIMULI. NO PAIN NOTED. NO DISTRESS NOTED. NO FACIAL GRIMACING NOTED. ON TELE MONITOR READING SR 78. ON VENT SETTING TOLERATING WELL. NO RESPIRATORY DISTRESS NOTED. BREATHING EVEN AND UNLABORED. ON G-TUBE FEEDING OF JEVITY 1.2 CURRENTLY AT 25 ML/HR. THE GOAL IS 60 ML/HR TOLERATED. G-TUBE PLACEMENT CHECKED IN PLACE. NO RESIDUAL NOTED. FLUSHED WITH WATER . IV ACCESS ON THE SHAN MIDLINE AND JAMES MIDLINE INTACT. TORRES CATHETER INTACT AND DRAINING YELLOW COLOR URINE. ALL DUE MEDS AND TREATMENT GIVEN ORDERED.ALL SAFETY MEASURES IN PLACE. BED LOCKED IN THE LOWEST POSITION . HEAD OF THE BED ELEVATED FOR ASPIRATION PRECAUTION. SIDE RAILS UP TIMES 2. WILL ENDORSE FOR [place].
[2022-09-17 07:01] LABS: PLATELET COUNT (AUTO) 287 K/uL (150-450)
--- NOTE | 2022-09-17 07:05 | NUR ---
RN OPEN NOTE RECEIVED PT IN BED, SLEEPING , OBTUNED ON MECHANICAL VENTILATION TOLERATING WELL NO SOB NOTED. NO S/SX OF RESPIRATORY DISTRESS NOTED. IV ACCESS IN SHAN MIDLINE AND JAMES MIDLINE . IV IS INTACT, PATENT, AND FLUSHING WELL. PATIENT IS ON G TUBE FEEDING JEVITY RUNNING AT 25 ML/HR WILL GRADUALLY INCREASE GOAL IS 60 ML/HR , NO RESIDUAL, TORRES CATH IN PLACE RUNNING CLEAR YELLOW URINE .PATIENT HAS DTI AT THE SACRAL AREA , BACK OF THE HEAD , WILL PERFORM WOUND CARE PER MD ORDER SAFETY PRECAUTIONS IN PLACE: BED IN LOWEST, LOCKED POSITION, SIDERAILS UPx2, AND BRAKES ON. TABLE AND CALL LIGHT WITHIN REACH. WILL CONTINUE TO MONITOR
[2022-09-17] MEDS: ACETYLCYSTEINE 10% SOLN 400 MG/4 ML VIAL NEB SCH ×3 (07:34→23:27)
[2022-09-17 08:00] VITALS: BP 129/70
[2022-09-17] MEDS: FAMOTIDINE (20 MG) 20 MG TABLET GT SCH ×2 (08:06→21:35)
[2022-09-17] MEDS: LEVETIRACETAM SOL (5 ML) 100 MG/ML UDC GT SCH ×2 (08:06→21:35)
[2022-09-17] MEDS: MULTIVIT W/MINERALS 1 TAB TABLET GT SCH (08:06)
[2022-09-17] MEDS: ENOXAPARIN SODIUM 40 MG/0.4 ML DISP.SYRIN SQ SCH (08:07)
[2022-09-17] MEDS: ZINC SULFATE 220 MG CAPSULE GT SCH (08:07)
[2022-09-17] MEDS: NEO/POLY-B/DEXAM OPHTH SUSP 5 ML BOTTLE LEFTEYE SCH ×3 (08:07→16:36)
[2022-09-17] MEDS: Z GUARD REMEDY 4 OZ OINT TP SCH (08:09)
[2022-09-17] MEDS: PROSOURCE / PROSTAT (PYXIS) 30 ML UDC GT SCH ×3 (08:09→16:35)
[2022-09-17] MEDS: DAKINS QUARTER STRENGTH (0.125%) 480 ML BOTTLE TOP SCH (08:21)
[2022-09-17] MEDS: POLYVINYL ALCOHOL 15 ML BOTTLE EACHEYE SCH ×3 (10:25→21:35)
[2022-09-17] MEDS: VANCOMYCIN 1.25 GM in IV D5W 250 ML IV SCH (11:00)
[2022-09-17 12:00] VITALS: BP 107/60
[2022-09-17 16:26] VITALS: BP 113/60
[2022-09-17] MEDS: ASCORBIC ACID 500 MG TABLET GT SCH (17:08)
[2022-09-17] MEDS: FERROUS SULFATE (325 MG) 325 MG/TAB TABLET GT SCH (17:08)
--- NOTE | 2022-09-17 17:38 | NUR ---
RECEIVED PATIENT ON VENT SETTINGS OF AC 20 ,VT 550, FIO2 40%, PEEP 0. HAS A TRACH SHILEY 6 CUFFED. AIRWAY PATENT AND SECURE. INLINE HHN TXS SALEEM WELL WITH NO ADVERSE REACTION NOTED. AMBU BAG AND EMERGENCY TRACH AT THE BEDSIDE. VENT PLUGGED INTO RED OUTLET. ALARMS SET AND AUDIBLE.
--- NOTE | 2022-09-17 19:07 | NUR ---
RN CLOSING NOTE PATIENT ON BED OBTUNDED, ON MECHANICAL VENT TOLERATING WELL O2 SAT 96%, NO ACUTE RESPIRATORY DISTRESS, PATIENT HAS IV ACCESS ON JAMES ML AND SHAN ML , HAS TORRES IN PLACE RUNNING CLEAR YELLOW URINE , GT FEEDING OF JEVITY AT 35 ML/HR GOAL TO 60 ML/HR SAFETY MEASURES IN PLACE,BED IS AT LOWEST POSITION , CALL LIGHT WITHIN REACH , BED ALARM IS ON .PATIENT HAS DTI ON THE LOW BACK , BACK OF THE HEAD AND BILATERAL EARS , ALL MEDICATIONS WERE ADMINISTERED , ALL NEEDS WERE MET .WILL ENDORSE KICKBOXING INSTRUCTOR NURSE TO FALLOW POC
--- NOTE | 2022-09-17 19:20 | NUR ---
HARVEST WORKER FRUIT OPENING NOTE RECEIVED PT IN BED, OBTUNDED. PT ON MECHANICAL VENTILATION TOLERATING WELL. NO SOB NOTED. NO S/S OF RESPIRATORY DISTRESS NOTED. IV ACCESS TO RIGHT UA MIDLINE AND LEFT UA MIDLINE . IV IS INTACT, PATENT, AND FLUSHING WELL. PATIENT IS ON G TUBE FEEDING JEVITY RUNNING AT 35 ML/HR, WILL GRADUALLY INCREASE. THE GOAL IS 60 ML/HR , NO RESIDUAL, TORRES CATH IN PLACE RUNNING CLEAR YELLOW URINE . PATIENT HAS DTI TO SACRAL AREA , AND BACK OF THE HEAD. SAFETY PRECAUTIONS IN PLACE: BED IN LOWEST, LOCKED POSITION, SIDE RAILS UP x2, AND BRAKES ON. TABLE AND CALL LIGHT WITHIN REACH. WILL CONTINUE TO MONITOR
[2022-09-17] MEDS ORDERED: NEOMY SULF/BACITRAC ZN/POLY 15 GM TUBE TP SCH (19:30)
[2022-09-17 20:00] VITALS: BP 119/71
[2022-09-18] VITALS: BP 100/63
[2022-09-18] MEDS: IPRATROPIUM NEB FS 0.5 MG/2.5 ML AMPUL.NEB IH SCH ×4 (01:42→19:30)
[2022-09-18] MEDS: ALBUTEROL FS 2.5 MG/0.5 ML VIAL.NEB NEB SCH ×4 (01:42→19:30)
[2022-09-18 04:00] VITALS: BP 113/79
[2022-09-18] MEDS: METOCLOPRAMIDE HCL 10 MG/2 ML VIAL IV SCH ×3 (04:38→21:39)
[2022-09-18] MEDS: CEFEPIME 2 GM in IV D5W 100 ML IV SCH ×3 (04:39→21:39)
[2022-09-18] MEDS: POLYVINYL ALCOHOL 15 ML BOTTLE EACHEYE SCH ×3 (04:44→21:40)
--- NOTE | 2022-09-18 06:40 | NUR ---
BILINGUAL SPANISH INBOUND SALES CLOSING NOTE LEFT PT IN BED, OBTUNDED. PT ON MECHANICAL VENTILATION TOLERATING WELL. NO SOB NOTED. NO S/S OF RESPIRATORY DISTRESS NOTED. IV ACCESS TO RIGHT UA MIDLINE AND LEFT UA MIDLINE . IV IS INTACT, PATENT, AND FLUSHING WELL. PATIENT IS ON G TUBE FEEDING JEVITY RUNNING AT 35 ML/HR, WILL GRADUALLY INCREASE. THE GOAL IS 60 ML/HR , NO RESIDUAL, TORRES CATH IN PLACE RUNNING CLEAR YELLOW URINE, 16OO ML OF URINE DRAINED . PATIENT HAS DTI TO SACRAL AREA , AND BACK OF THE HEAD. WOUND TREATMENT COMPLETED TO SACRAL WOUND, AND DRESSING CHANGED. SAFETY PRECAUTIONS IN PLACE: BED IN LOWEST, LOCKED POSITION, SIDE RAILS UP x2, AND BRAKES ON. TABLE AND CALL LIGHT WITHIN REACH. WILL ENDORSE PT TO AM SHIFT NURSE FOR [place].
[2022-09-18 07:09] LABS: BASOPHILS % (AUTO) 0.3 % (0.0-2.0); EOSINOPHILS % (AUTO) 3.4 % (0.0-6.0); HEMATOCRIT 28 % (39-51); HEMOGLOBIN 8.5 g/dL (13.5-17.5); LYMPHOCYTES # (AUTO) 1.3 K/uL (0.8-4.8); LYMPHOCYTES % (AUTO) 17.1 % (20.0-44.0); MEAN CORPUSCULAR HGB CONC 31 g/dl (31.0-36.0); MEAN CORPUSCULAR VOLUME 84 fL (80-96); MONOCYTES # (AUTO) 0.7 K/uL (0.1-1.30); MONOCYTES % (AUTO) 9.2 % (2.0-12.0); NEUTROPHILS # (AUTO) 5.2 K/uL (1.8-8.9); PLATELET COUNT (AUTO) 301 K/uL (150-450); RED BLOOD CELL COUNT(AUTO) 3.27 MIL/uL (4.5-6.0); WHITE BLOOD COUNT (AUTO) 7.4 K/uL (4.3-11.0)
[2022-09-18 07:29] LABS: CALCIUM, SERUM 9.7 mg/dL (8.5-10.1); MAGNESIUM 2.3 mg/dL (1.8-2.4); PHOSPHORUS 4.5 mg/dL (2.5-4.9); POTASSIUM 4.1 mmol/L (3.5-5.1)
[2022-09-18 08:00] VITALS: BP 103/66
[2022-09-18] MEDS: FAMOTIDINE (20 MG) 20 MG TABLET GT SCH ×2 (08:10→21:39)
[2022-09-18] MEDS: MULTIVIT W/MINERALS 1 TAB TABLET GT SCH (08:10)
[2022-09-18] MEDS: ZINC SULFATE 220 MG CAPSULE GT SCH (08:10)
[2022-09-18] MEDS: LEVETIRACETAM SOL (5 ML) 100 MG/ML UDC GT SCH ×2 (08:10→21:40)
[2022-09-18] MEDS: ACETYLCYSTEINE 10% SOLN 400 MG/4 ML VIAL NEB SCH ×3 (08:15→23:27)
[2022-09-18] MEDS: NEO/POLY-B/DEXAM OPHTH SUSP 5 ML BOTTLE LEFTEYE SCH ×3 (08:15→17:05)
[2022-09-18] MEDS: PROSOURCE / PROSTAT (PYXIS) 30 ML UDC GT SCH ×3 (08:15→17:05)
[2022-09-18] MEDS: ENOXAPARIN SODIUM 40 MG/0.4 ML DISP.SYRIN SQ SCH (08:18)
[2022-09-18] MEDS: Z GUARD REMEDY 4 OZ OINT TP SCH (08:20)
[2022-09-18] MEDS: DAKINS QUARTER STRENGTH (0.125%) 480 ML BOTTLE TOP SCH (08:20)
[2022-09-18] MEDS ORDERED: VANC1PLA9 IV (09:20)
[2022-09-18] MEDS ORDERED: CEFE1VIA3 IJ (09:20)
[2022-09-18 12:00] VITALS: BP 129/77
[2022-09-18 16:00] VITALS: BP 120/72
[2022-09-18] MEDS: ASCORBIC ACID 500 MG TABLET GT SCH (17:05)
[2022-09-18] MEDS: FERROUS SULFATE (325 MG) 325 MG/TAB TABLET GT SCH (17:05)
--- NOTE | 2022-09-18 18:06 | NUR ---
RN NOTE PT FOR D/C PLANNING, PER FAMILY (BROTHER) THEY DO NOT WANT PT TO GO BACK TO [place]. EXCHANGE ENGINEER AWARE. PT IN BED, TRACH IN PLACE WITH VENT SETTINGS TOLERATED WELL. IV ACCESS ON JAMES SHAN MIDLINE, PATENT. V/S STABLE. AM/PM CARE DONE. WILL CONTINUE TO MONITOR. CONTINUES ON GT FEEDING. ASPIRATION PREC MAINTAINED.
--- NOTE | 2022-09-18 19:44 | NUR ---
DAISY/RN RECEIVED PATIENT LYING IN BED EYES OPEN, NON VERBALLY RESPONSIVE, APPEARS COMFORTABLE, NO SIGNS OF DISTRESS NOTE, ON MECHANICAL VENTILATOR, ON G TUBE FEEDING, NO RESIDUAL NOTE, HOB ELEVATED, F/C TO GRAVITY, CALL LIGHT IN REACH, WILL MONITOR.
[2022-09-18 22:00] VITALS: BP 124/76
[2022-09-18] MEDS: VANCOMYCIN 1.25 GM in IV D5W 250 ML IV SCH (23:59)
[2022-09-19 00:46] VITALS: BP 120/78
[2022-09-19] MEDS: ALBUTEROL FS 2.5 MG/0.5 ML VIAL.NEB NEB SCH ×4 (01:21→19:51)
[2022-09-19] MEDS: IPRATROPIUM NEB FS 0.5 MG/2.5 ML AMPUL.NEB IH SCH ×4 (01:21→19:51)
[2022-09-19 04:00] VITALS: BP 131/78
[2022-09-19] MEDS: CEFEPIME 2 GM in IV D5W 100 ML IV SCH ×3 (04:59→21:08)
[2022-09-19] MEDS: METOCLOPRAMIDE HCL 10 MG/2 ML VIAL IV SCH ×3 (04:59→21:06)
[2022-09-19] MEDS: POLYVINYL ALCOHOL 15 ML BOTTLE EACHEYE SCH ×3 (05:08→21:06)
--- NOTE | 2022-09-19 05:45 | NUR ---
DAISY/RN MORNING CARE DONE, TOTAL LINEN CHANGE RENDERED, GOOD SKIN SKIN CARE DONE, WOUND CARE DONE, REPOSITION TO COMFORT, WILL MONITOR.
--- NOTE | 2022-09-19 05:53 | NUR ---
DAISY/RN NO GASTRIC RESIDUAL NOTED, INCREASE FEEDING RATE TO 4O MLS/HR. WILL MONITOR.
--- NOTE | 2022-09-19 06:12 | NUR ---
DAISY/RN PATIENT APPEAR SLEEPING, NO DISTRESS NOTED, HOB ELEVATED, ALL NEEDS ATTENDED AT THIS TIME, WILL CONTINUE TO MONITOR.
--- NOTE | 2022-09-19 07:10 | NUR ---
TILE GRADER OPEN NOTE: AWAKE. OBTUNDED. TRACH WITH VENT WORKING AT PRESCRIBED SETTINGS. ON SWEEPER DRIVER SINUS RHYTHM IN THE 60'S. RIGHT AND LEFT UPPER ARM MIDLINE. PATENT. NO S/S OF COMPLICATIONS. DRESSINGS ARE CLEAN AND DRY. GT IN PLACE PATENT ON JEVITY 1.2 FORMULA RUNNING AT 40 ML/HR. NO RESIDUAL. TORRES CATHETER IN PLACE WITH YELLOW URINE. HOB ELEVATED SEMI-FOWLERS POSITION. BILATERAL HALF SIDE RAILS UP X2. BED IS LOCKED IN LOW POSITION. CALL LIGHT IN REACH. SKIN IS WARM AND DRY. MOIST ORAL MUCOSA.
[2022-09-19] MEDS: ACETYLCYSTEINE 10% SOLN 400 MG/4 ML VIAL NEB SCH ×2 (07:22→13:36)
[2022-09-19 08:00] VITALS: BP 149/98
[2022-09-19 08:19] LABS: CALCIUM, SERUM 10.2 mg/dL (8.5-10.1); CREATININE 0.9 mg/dL (0.6-1.3); POTASSIUM 3.9 mmol/L (3.5-5.1)
[2022-09-19] MEDS: LEVETIRACETAM SOL (5 ML) 100 MG/ML UDC GT SCH ×2 (09:21→21:06)
[2022-09-19] MEDS: MULTIVIT W/MINERALS 1 TAB TABLET GT SCH (09:21)
[2022-09-19] MEDS: FAMOTIDINE (20 MG) 20 MG TABLET GT SCH ×2 (09:21→21:06)
[2022-09-19] MEDS: ZINC SULFATE 220 MG CAPSULE GT SCH (09:21)
[2022-09-19] MEDS: NEO/POLY-B/DEXAM OPHTH SUSP 5 ML BOTTLE LEFTEYE SCH ×3 (09:24→17:59)
[2022-09-19] MEDS: PROSOURCE / PROSTAT (PYXIS) 30 ML UDC GT SCH ×3 (09:24→17:59)
[2022-09-19] MEDS: ENOXAPARIN SODIUM 40 MG/0.4 ML DISP.SYRIN SQ SCH (09:26)
[2022-09-19] MEDS: Z GUARD REMEDY 4 OZ OINT TP PRN ×2 (11:30→11:33)
[2022-09-19] MEDS: DAKINS QUARTER STRENGTH (0.125%) 480 ML BOTTLE TOP SCH (11:31)
[2022-09-19] MEDS: Z GUARD REMEDY 4 OZ OINT TP SCH (11:35)
[2022-09-19 12:00] VITALS: BP 134/95
[2022-09-19] MEDS: IV NS 0.9% 250 ML IV PRN (13:50)
[2022-09-19 16:00] VITALS: BP 112/68
[2022-09-19] MEDS: ASCORBIC ACID 500 MG TABLET GT SCH (17:59)
[2022-09-19] MEDS: FERROUS SULFATE (325 MG) 325 MG/TAB TABLET GT SCH (17:59)
--- NOTE | 2022-09-19 18:41 | NUR ---
INSPECTOR BULLET SLUGS CLOSING NOTE: EYES OPEN. OBTUNDED. TRACH WITH VENT WORKING AT PRESCRIBED SETTINGS. ON ANALYSIS MGR SINUS RHYTHM IN THE 60'S. RIGHT AND LEFT UPPER ARM MIDLINE. PATENT. NO S/S OF COMPLICATIONS. DRESSINGS ARE CLEAN AND DRY. GT IN PLACE PATENT ON JEVITY 1.2 FORMULA RUNNING AT 50 ML/HR. NO RESIDUAL. TURNED AND REPOSITIONED, WOUND CARE PROVIDED TO AFFECTED AREAS ORDERED, KEPT CLEAN AND DRY. ORAL CARE PROVIDED. ORAL AND TRACH SECRETIONS SUCTIONED NEEDED. TORRES CATHETER IN PLACE WITH YELLOW URINE. HOB ELEVATED SEMI-FOWLERS POSITION. BILATERAL HALF SIDE RAILS UP X2. BED IS LOCKED IN LOW POSITION. CALL LIGHT IN REACH. SKIN IS WARM AND DRY. MOIST ORAL MUCOSA. PATIENT VISITED BROTHER AND FRIENDS THROUGHOUT DAY. NO ACUTE DISTRESS NOTED. NO A/R TO IV ABX.
[2022-09-19 20:00] VITALS: BP 111/73
--- NOTE | 2022-09-19 20:00 | NUR ---
SCOUT EXECUTIVE OPENING NOTE RECEIVED PT IN BED; OBTUNDED; ON VENT TRACH; TOLERATING THE SETTINGS WELL; RT @ BEDSIDE; NO SOB AND DISTRESS NOTED; NO S/SX OF PAIN NOTED; ON TELE SR HR 63; GTF JEVITY @ 50ML/HR; 0 ML RESIDUAL NOTED; KEPT HOB ELEVATED; F/C IN PLACE WITH CLEAR YELLOW URINE; SHAN AND JAMES MIDLINE INTACT AND PATENT; KEPT HIM DRY AND CLEAN; REPOSITIONED FOR COMFORT AND SKIN MANAGEMENT; SAFETY MEASURES MAINTAINED: BED LOCKED IN LOWEST POSITION; SIDE RAILS UP X3; CALL LIGHT WITHIN REACH; VSS; WILL CONTINUE TO MONITOR.
--- NOTE | 2022-09-19 20:52 | NUR ---
SILICA SPRAY MIXER NOTE REPORT GIVEN TO EMIL FOR CONTINUE OF CARE.
[2022-09-19] MEDS: JEVITY 1.2 CAL 1,000 ML BOTTLE GT PRN (22:35)
[2022-09-19] MEDS: VANCOMYCIN 1.25 GM in IV D5W 250 ML IV SCH (22:41)
[2022-09-20] VITALS: BP 122/76
[2022-09-20] MEDS: ALBUTEROL FS 2.5 MG/0.5 ML VIAL.NEB NEB SCH ×4 (00:33→20:15)
[2022-09-20] MEDS: IPRATROPIUM NEB FS 0.5 MG/2.5 ML AMPUL.NEB IH SCH ×4 (00:33→20:15)
[2022-09-20] MEDS: ACETYLCYSTEINE 10% SOLN 400 MG/4 ML VIAL NEB SCH ×3 (00:33→13:20)
[2022-09-20 04:00] VITALS: BP 118/81
[2022-09-20] MEDS: METOCLOPRAMIDE HCL 10 MG/2 ML VIAL IV SCH ×3 (05:31→21:20)
[2022-09-20] MEDS: POLYVINYL ALCOHOL 15 ML BOTTLE EACHEYE SCH ×3 (05:32→21:22)
[2022-09-20] MEDS: CEFEPIME 2 GM in IV D5W 100 ML IV SCH ×3 (05:33→21:26)
[2022-09-20 07:18] LABS: CALCIUM, SERUM 9.6 mg/dL (8.5-10.1); CREATININE 0.9 mg/dL (0.6-1.3); POTASSIUM 3.4 mmol/L (3.5-5.1)
--- NOTE | 2022-09-20 07:35 | NUR ---
television station manager OPENING note pt is obtunded and nonverbal. pt is on tele monitor currently sinus rhythm 64. pt is on mechanical ventilator with ordered settings tolerating well.pt li cathether yellow color draining to gravity. pt has right iv arm midline. iv intact,patent and flushing well. pt has gtube intact, patent. no residual volume noted. all safety measures in place. call luight within rech. bed locked at lowest position. kyleie rails up x2.
[2022-09-20] MEDS: LEVETIRACETAM SOL (5 ML) 100 MG/ML UDC GT SCH ×2 (08:41→21:21)
[2022-09-20] MEDS: FAMOTIDINE (20 MG) 20 MG TABLET GT SCH ×2 (08:41→21:21)
[2022-09-20] MEDS: ZINC SULFATE 220 MG CAPSULE GT SCH (08:41)
[2022-09-20] MEDS: MULTIVIT W/MINERALS 1 TAB TABLET GT SCH (08:41)
[2022-09-20] MEDS: PROSOURCE / PROSTAT (PYXIS) 30 ML UDC GT SCH ×3 (09:00→18:33)
[2022-09-20 09:08] LABS: BASOPHILS % (AUTO) 0.4 % (0.0-2.0); EOSINOPHILS % (AUTO) 6.5 % (0.0-6.0); HEMATOCRIT 27 % (39-51); HEMOGLOBIN 8.7 g/dL (13.5-17.5); LYMPHOCYTES % (AUTO) 19.7 % (20.0-44.0); MEAN CORPUSCULAR HGB CONC 32 g/dl (31.0-36.0); MEAN CORPUSCULAR VOLUME 81 fL (80-96); MONOCYTES # (AUTO) 0.5 K/uL (0.1-1.30); MONOCYTES % (AUTO) 10.3 % (2.0-12.0); NEUTROPHILS # (AUTO) 3.3 K/uL (1.8-8.9); NEUTROPHILS % (AUTO) 63.1 % (43.0-81.0); PLATELET COUNT (AUTO) 269 K/uL (150-450); RED BLOOD CELL COUNT(AUTO) 3.31 MIL/uL (4.5-6.0); WHITE BLOOD COUNT (AUTO) 5.3 K/uL (4.3-11.0)
[2022-09-20] MEDS: DAKINS QUARTER STRENGTH (0.125%) 480 ML BOTTLE TOP SCH (09:29)
[2022-09-20] MEDS: Z GUARD REMEDY 4 OZ OINT TP SCH (09:30)
[2022-09-20] MEDS: NEO/POLY-B/DEXAM OPHTH SUSP 5 ML BOTTLE LEFTEYE SCH ×4 (09:49→21:20)
[2022-09-20] MEDS: ENOXAPARIN SODIUM 40 MG/0.4 ML DISP.SYRIN SQ SCH (09:52)
[2022-09-20 12:00] VITALS: BP 122/64
--- NOTE | 2022-09-20 12:03 | NUR ---
rn note notified dr. gaxiola that patient has more than 300 gastric residual volume. said to hold tube feedings
[2022-09-20] MEDS ORDERED: POTASSIUM CHLORIDE 20 MEQ POWDER PACKET NG SCH (12:30)
[2022-09-20 16:00] VITALS: BP 105/56
--- NOTE | 2022-09-20 18:00 | NUR ---
rn note provided updates to family. explained that pt had resiudal volume more than 200 m, and patient has no fluids running due to tko. pt family verbalized understanding
[2022-09-20] MEDS: ASCORBIC ACID 500 MG TABLET GT SCH (18:13)
[2022-09-20] MEDS: FERROUS SULFATE (325 MG) 325 MG/TAB TABLET GT SCH (18:13)
--- NOTE | 2022-09-20 19:30 | NUR ---
RECEIVED PT IN BED; OBTUNDED; ON VENT TRACH; TOLERATING THE SETTINGS WELL; NO SOB AND DISTRESS NOTED; NO S/SX OF PAIN NOTED; ON TELE; GTF JEVITY @ 50ML/HR; 0 ML RESIDUAL NOTED; KEPT HOB ELEVATED; F/C IN PLACE WITH CLEAR YELLOW URINE; SHAN AND JAMES MIDLINE IN PLACE. SAFETY MEASURES IN PLACE. WILL CONTINUE PLAN OF CARE.
--- NOTE | 2022-09-20 19:45 | NUR ---
director telemetry closing note pt is obtunded and nonverbal. pt is on tele monitor currently sinus rhythm. pt is on mechanical ventilator with ordered settings tolerating well.pt [place] catheter yellow color draining to gravity. pt has right iv arm midline. iv intact,patent and flushing well. pt has gtube intact, patent. no residual volume noted at this time. all safety measures in place. call light within reach. bed locked at lowest position. asa rails up x2. endorsed to shift production supervisor rn for contuity of care.
[2022-09-20 20:00] VITALS: BP 111/78
[2022-09-20] MEDS: VANCOMYCIN 1.25 GM in IV D5W 250 ML IV SCH (22:17)
[2022-09-20] MEDS: IV NS 0.9% 250 ML IV PRN (23:02)
[2022-09-21] VITALS: BP 99/60
[2022-09-21] MEDS: ACETYLCYSTEINE 10% SOLN 400 MG/4 ML VIAL NEB SCH ×4 (01:19→23:58)
[2022-09-21] MEDS: ALBUTEROL FS 2.5 MG/0.5 ML VIAL.NEB NEB SCH ×4 (02:19→19:52)
[2022-09-21] MEDS: IPRATROPIUM NEB FS 0.5 MG/2.5 ML AMPUL.NEB IH SCH ×4 (02:19→19:52)
[2022-09-21 04:00] VITALS: BP 96/71
[2022-09-21] MEDS: POLYVINYL ALCOHOL 15 ML BOTTLE EACHEYE SCH ×3 (04:11→20:26)
[2022-09-21] MEDS: CEFEPIME 2 GM in IV D5W 100 ML IV SCH ×3 (04:11→20:51)
[2022-09-21] MEDS: METOCLOPRAMIDE HCL 10 MG/2 ML VIAL IV SCH ×3 (04:11→20:51)
[2022-09-21] MEDS: JEVITY 1.2 CAL 1,000 ML BOTTLE GT PRN (04:11)
[2022-09-21] MEDS ORDERED: LIDOCAINE 1%-EPI 1:100,000 20 ML VIAL TP ONE (06:00)
[2022-09-21] MEDS ORDERED: SILVER NITRATE APPLICATOR 1 EA BOX TP SCH (06:00)
--- NOTE | 2022-09-21 06:43 | NUR ---
PT IN BED; OBTUNDED; ON VENT TRACH; TOLERATING THE PRESRIBED SETTINGS WELL; NO SOB AND DISTRESS NOTED; NO S/SX OF PAIN NOTED; ON TELE MONITOR; GTF JEVITY @ 60ML/HR; 0 ML RESIDUAL NOTED; KEPT HOB ELEVATED; F/C IN PLACE WITH CLEAR YELLOW URINE; SHAN AND JAMES MIDLINE INFUSING NS AT 10ML/HR TKO, PATENT AND INTACT. DUE MEDS GIVEN. NEEDS ATTENDED. KEPT CLEAN AND DRY. REPOSITIONED FOR COMFORT AND SKIN MANAGEMENT; ALL SAFETY MEASURES MAINTAINED. WILL ENDORSE TO NEXT NURSE ON DUTY FOR CONTINUITY OF CARE.
--- NOTE | 2022-09-21 07:39 | NUR ---
ANIMAL SURGEON NOTE PT IN BED; OBTUNDED; ON VENT TRACH; TOLERATING SETTINGS WELL; NO SOB AND DISTRESS NOTED; NO S/SX OF PAIN NOTED; ON TELE MONITOR; GTF JEVITY @ 60ML/HR; NO RESIDUAL NOTED; KEPT HOB ELEVATED; F/C IN PLACE WITH CLEAR YELLOW URINE; SHAN AND JMAES MIDLINE INFUSING NS AT 10ML/HR TKO, PATENT AND INTACT. KEPT CLEAN AND DRY. REPOSITIONED FOR C ALL SAFETY MEASURES MAINTAINED. BED IN LOWEST AND LOCKED POSITION ,WILL CONT TO MONITOR
[2022-09-21 07:48] LABS: CALCIUM, SERUM 9.7 mg/dL (8.5-10.1); POTASSIUM 3.4 mmol/L (3.5-5.1)
[2022-09-21 08:00] VITALS: BP 106/72
--- NOTE | 2022-09-21 08:00 | NUR ---
telemedicine physician note residual from gtube 50ml at this time ,will monitor
[2022-09-21] MEDS: MULTIVIT W/MINERALS 1 TAB TABLET GT SCH (08:07)
[2022-09-21] MEDS: LEVETIRACETAM SOL (5 ML) 100 MG/ML UDC GT SCH ×2 (08:07→20:51)
[2022-09-21] MEDS: ZINC SULFATE 220 MG CAPSULE GT SCH (08:07)
[2022-09-21] MEDS: FAMOTIDINE (20 MG) 20 MG TABLET GT SCH ×2 (08:07→20:51)
[2022-09-21] MEDS: PROSOURCE / PROSTAT (PYXIS) 30 ML UDC GT SCH ×3 (08:08→16:06)
[2022-09-21] MEDS: ENOXAPARIN SODIUM 40 MG/0.4 ML DISP.SYRIN SQ SCH (08:09)
[2022-09-21] MEDS: DAKINS QUARTER STRENGTH (0.125%) 480 ML BOTTLE TOP SCH (08:10)
[2022-09-21] MEDS: Z GUARD REMEDY 4 OZ OINT TP SCH (08:10)
--- NOTE | 2022-09-21 09:30 | NUR ---
telephone operator receptionist note Family at bedside, patient condition updated, reposition done, mouth care done
[2022-09-21] MEDS: POTASSIUM CHLORIDE 20 MEQ POWDER PACKET GT SCH (09:52)
--- NOTE | 2022-09-21 11:05 | NUR ---
tele tech note Spoke with patient brother Jose Milian, telephone consent obtained for thoracentesis Addendum: 09/21/22 at 1132 by AARON CHEN RN also inform that ct chest will be done today
--- NOTE | 2022-09-21 11:30 | NUR ---
supervisor television chassis repair note noted residual 200ml from g tube ,called to dr gaxiola notified that patient on Reglan 10mg iv q8 hour , per dr gaxiola hold gtube feeding until residual gone then resume half of rate
[2022-09-21 12:00] VITALS: BP 80/53
--- NOTE | 2022-09-21 12:00 | NUR ---
telesales team leader note taken to ct chest to radiology
[2022-09-21] MEDS ORDERED: IV NS 0.9% 500 ML IV ONE ×2 (12:30→16:30)
[2022-09-21] MEDS: NEO/POLY-B/DEXAM OPHTH SUSP 5 ML BOTTLE LEFTEYE SCH ×2 (12:41→16:14)
--- NOTE | 2022-09-21 12:42 | NUR ---
PACKAGING SALES NOTE NOTED BP 80/[address] GARDNER WITH ORDER TO GIVE BOLUS NS 500 ML, ORDER CARRIED OUT
--- NOTE | 2022-09-21 13:25 | NUR ---
telehealth nurse note after bolus 500 ml given ,bp 112/78 will f\u
--- NOTE | 2022-09-21 14:23 | NUR ---
WET PROCESS HEAD MILLER NOTE REPORTED TO DR GARDNER THAT URINE OUT PUT SINCE 7 AM 100 ML ,BUN IS 32 CREAT 1[address] CHEST RESULT AND PER DR GROSSMAN ORDER THORACENTESIS WILL BE DONE LT LUNG Addendum: 09/21/22 at 1513 by AARON CHEN RN dr gardner notified abut urine out put 100 since 7 am no new order given at this time
--- NOTE | 2022-09-21 15:13 | NUR ---
telephone sales agent note called to radiology thoracentesis will be done tomorrow
--- NOTE | 2022-09-21 15:44 | NUR ---
mindi suarez note recheck residual still 120 ml ,will hold g tube feeding Addendum: 09/21/22 at 1555 by AARON CHEN RN turn reposition ,keep clean dry made bm , will cont to monitor
[2022-09-21 16:00] VITALS: BP 88/40
--- NOTE | 2022-09-21 16:00 | NUR ---
ENGINEERING ANALYST NOTE ORAL CARE DONE ,ORAL SUCTION DONE ,ALL NEEDS ATTENDED
--- NOTE | 2022-09-21 16:25 | NUR ---
SPREADER OPERATOR AUTOMATIC NOTE BP DROPPING AGAIN 88/[address] GARDNER WITH ORDER BOLUS AGAIN NS 500 ML WILL F\U
[2022-09-21] MEDS: FERROUS SULFATE (325 MG) 325 MG/TAB TABLET GT SCH (17:01)
[2022-09-21] MEDS: ASCORBIC ACID 500 MG TABLET GT SCH (17:02)
--- NOTE | 2022-09-21 17:11 | NUR ---
telemedicine physician note bolus 500 ml of ns given as ordered ,bp now 106/59 will monitor
--- NOTE | 2022-09-21 18:31 | NUR ---
rn telemetry note no residual noted at this time ,restarted g tube feeding at 30 ml per hour, will monitor for residual, keep hob elevated at all time, , oral care done,reposition done , keep clean dry, with [place] cath to gravity with yellow cloudy urine noted , rt upper and lt upper arm mid line in place and flushed well , safety measure implemented ,family at bedside, will cont to monitor closely
--- NOTE | 2022-09-21 19:30 | NUR ---
PT AWAKE IN BED; OBTUNDED; ON VENT TRACH; TOLERATING SETTINGS WELL; NO SOB AND DISTRESS NOTED; NO S/SX OF PAIN NOTED; ON TELE MONITOR; GTF JEVITY @ 30ML/HR; NO RESIDUAL NOTED; KEPT HOB ELEVATED; F/C IN PLACE WITH 50ML CLEAR YELLOW URINE; SHAN AND JAMES MIDLINE ON SL. SAFETY MEASURES IN PLACE. WILL CONTINUE PLAN OF CARE.
[2022-09-21 20:00] VITALS: BP 88/54
[2022-09-21] MEDS ORDERED: IV NS 0.9% 1,000 ML IV ONE (20:30)
--- NOTE | 2022-09-21 20:30 | NUR ---
Pt bp 88/54. Charge nurse and MD notified. Will carry out order to give 0.9 NS bolus and Midodrine 5mg via gtube tid prn for sbp <90.
--- NOTE | 2022-09-21 22:00 | NUR ---
NS bolus infused BP 97/58.
[2022-09-21] MEDS: VANCOMYCIN 1.25 GM in IV D5W 250 ML IV SCH (22:47)
[2022-09-21] MEDS: MIDODRINE HCL (5MG) 5 MG TABLET GT PRN (23:54)
--- NOTE | 2022-09-21 23:54 | NUR ---
BP 89/41. PRN midodrine 5mg given as needed and as ordered.
[2022-09-22] VITALS: BP 89/47
--- NOTE | 2022-09-22 00:31 | NUR ---
BP 93/50.
[2022-09-22] MEDS: ALBUTEROL FS 2.5 MG/0.5 ML VIAL.NEB NEB SCH ×4 (01:06→20:15)
[2022-09-22] MEDS: IPRATROPIUM NEB FS 0.5 MG/2.5 ML AMPUL.NEB IH SCH ×4 (01:06→20:15)
[2022-09-22 04:00] VITALS: BP 93/61
[2022-09-22] MEDS: POLYVINYL ALCOHOL 15 ML BOTTLE EACHEYE SCH ×3 (04:07→20:51)
[2022-09-22] MEDS: CEFEPIME 2 GM in IV D5W 100 ML IV SCH ×3 (04:08→20:50)
[2022-09-22] MEDS: METOCLOPRAMIDE HCL 10 MG/2 ML VIAL IV SCH ×3 (04:08→20:50)
[2022-09-22 05:59] LABS: BASOPHILS % (AUTO) 0.2 % (0.0-2.0); EOSINOPHILS % (AUTO) 2.3 % (0.0-6.0); HEMATOCRIT 23 % (39-51); HEMOGLOBIN 7.5 g/dL (13.5-17.5); LYMPHOCYTES # (AUTO) 0.8 K/uL (0.8-4.8); LYMPHOCYTES % (AUTO) 7.5 % (20.0-44.0); MEAN CORPUSCULAR HGB CONC 32 g/dl (31.0-36.0); MEAN CORPUSCULAR VOLUME 82 fL (80-96); MONOCYTES # (AUTO) 0.7 K/uL (0.1-1.30); MONOCYTES % (AUTO) 7.1 % (2.0-12.0); NEUTROPHILS # (AUTO) 8.6 K/uL (1.8-8.9); NEUTROPHILS % (AUTO) 82.9 % (43.0-81.0); PLATELET COUNT (AUTO) 213 K/uL (150-450); RED BLOOD CELL COUNT(AUTO) 2.84 MIL/uL (4.5-6.0); WHITE BLOOD COUNT (AUTO) 10.4 K/uL (4.3-11.0)
[2022-09-22 06:15] LABS: CALCIUM, SERUM 9.6 mg/dL (8.5-10.1); CREATININE 0.9 mg/dL (0.6-1.3); PHOSPHORUS 3.7 mg/dL (2.5-4.9); POTASSIUM 3.7 mmol/L (3.5-5.1)
--- NOTE | 2022-09-22 06:58 | NUR ---
PT ASLEEP IN BED; OBTUNDED; ON VENT TRACH; TOLERATING SETTINGS WELL; NO SOB AND DISTRESS NOTED; NO S/SX OF PAIN NOTED; ON TELE MONITOR; GTF JEVITY @ 30ML/HR; NO RESIDUAL NOTED; KEPT HOB ELEVATED; F/C IN PLACE DRAINING CLEAR YELLOW URINE; SHAN AND JAMES MIDLINE ON SL. DUE MEDS GIVEN. NEEDS ATTENDED. KEPT CLEAN AND DRY. SAFETY MEASURES MAINTAINED. WITH HOB >30. WILL ENDORSE TO NEXT NURSE ON DUTY FOR CONTINUITY OF CARE.
--- NOTE | 2022-09-22 07:30 | NUR ---
RN CALLED RADIOLOGY TO CONFIRM THORACENTESIS TIME, APPROXIMATELY 0830 WITH
[2022-09-22 08:00] VITALS: BP 100/76
[2022-09-22] MEDS ORDERED: IV NS 0.9% 1,000 ML IV ONE (08:00)
[2022-09-22] MEDS: ACETYLCYSTEINE 10% SOLN 400 MG/4 ML VIAL NEB SCH ×2 (08:22→15:00)
[2022-09-22] MEDS: Z GUARD REMEDY 4 OZ OINT TP SCH (09:21)
[2022-09-22] MEDS: DAKINS QUARTER STRENGTH (0.125%) 480 ML BOTTLE TOP SCH (09:29)
[2022-09-22] MEDS: NEO/POLY-B/DEXAM OPHTH SUSP 5 ML BOTTLE LEFTEYE SCH ×3 (09:30→17:00)
--- NOTE | 2022-09-22 10:13 | NUR ---
THORACENTESIS CANCELLED PER MD ,RADIOLOGY NTIFIED.PRIMARY RN AWARE.
--- NOTE | 2022-09-22 10:13 | NUR ---
DR. GROSSMAN CALLED AND ORDERED CANCEL THORACENTESIS IF NOT DONE YET.
[2022-09-22] MEDS: MULTIVIT W/MINERALS 1 TAB TABLET GT SCH (10:17)
[2022-09-22] MEDS: ZINC SULFATE 220 MG CAPSULE GT SCH (10:17)
[2022-09-22] MEDS: FAMOTIDINE (20 MG) 20 MG TABLET GT SCH ×2 (10:17→20:50)
[2022-09-22] MEDS: POTASSIUM CHLORIDE 20 MEQ POWDER PACKET GT SCH (10:17)
[2022-09-22] MEDS: PROSOURCE / PROSTAT (PYXIS) 30 ML UDC GT SCH ×3 (10:17→17:00)
[2022-09-22] MEDS: LEVETIRACETAM SOL (5 ML) 100 MG/ML UDC GT SCH ×2 (10:17→20:50)
[2022-09-22 12:00] VITALS: BP 138/87
[2022-09-22] MEDS: VANCOMYCIN 1.25 GM in IV D5W 250 ML IV SCH (14:23)
[2022-09-22 16:00] VITALS: BP 126/86
[2022-09-22] MEDS: FERROUS SULFATE (325 MG) 325 MG/TAB TABLET GT SCH (19:14)
[2022-09-22] MEDS: ASCORBIC ACID 500 MG TABLET GT SCH (19:14)
--- NOTE | 2022-09-22 19:45 | NUR ---
RN OPENING NOTES: RECEIVED PT IN BED, ASLEEP BUT EASILY AROUSABLE, PT IS OBTUNDED; ON TRACH TO VENT SETTINGS AND PT TOLERATED WELL. S#6, AC-20, TV-550, FIO2-40%, PEEP-OFF. BREATHING EVEN AND UNLABORED. IV ACCESS ON SHAN AND JAMES MIDLINE INTACT AND PATENT. GTF JEVITY 1.2 @ 30ML/HR; NO RESIDUAL NOTED AT THIS MOMENT. HOB KEPT ELEVATED. NO FACIAL GRIMACING NOTED. NO ACUTE DISTRESS. FAMILY MEMBERS AT BEDSIDE. F/C IN PLACE, DRAINING BY GRAVITY. NOTED YELLOWISH/CLEAR URINE. ALL SAFETY MEASURES IN PLACE. BED IN LOWEST POSITION AND LOCKED. SIDE RAILS UP X3, PLACE CALL LIGHT WITH IN REACH. WILL CONTINUE TO MONITOR
[2022-09-22 20:00] VITALS: BP 117/78
--- NOTE | 2022-09-22 20:22 | NUR ---
RN CLOSING NOTE PT IN BED; OBTUNDED; ON VENT TRACH; TOLERATING SETTINGS WELL; NO SOB AND DISTRESS NOTED; NO S/SX OF PAIN NOTED; ON TELE MONITOR; GTF JEVITY @ 30ML/HR; NO RESIDUAL NOTED; KEPT HOB ELEVATED; F/C IN PLACE DRAINING CLEAR YELLOW URINE; SHAN AND JAMES MIDLINE RUNNING NS @100MLS/HR. DUE MEDS GIVEN. NEEDS ATTENDED. KEPT CLEAN AND DRY. SAFETY MEASURES MAINTAINED. WITH HOB >30. WILL ENDORSE TO NEXT NURSE ON DUTY FOR CONTINUITY OF CARE.
[2022-09-23] VITALS: BP 122/73
[2022-09-23] MEDS: ACETYLCYSTEINE 10% SOLN 400 MG/4 ML VIAL NEB SCH ×3 (01:22→14:37)
[2022-09-23] MEDS: IPRATROPIUM NEB FS 0.5 MG/2.5 ML AMPUL.NEB IH SCH ×4 (01:22→19:44)
[2022-09-23] MEDS: ALBUTEROL FS 2.5 MG/0.5 ML VIAL.NEB NEB SCH ×4 (01:22→19:44)
[2022-09-23 04:00] VITALS: BP 132/87
[2022-09-23] MEDS: CEFEPIME 2 GM in IV D5W 100 ML IV SCH ×3 (04:26→21:35)
[2022-09-23] MEDS: POLYVINYL ALCOHOL 15 ML BOTTLE EACHEYE SCH ×3 (04:27→21:50)
[2022-09-23] MEDS: METOCLOPRAMIDE HCL 10 MG/2 ML VIAL IV SCH ×3 (04:28→21:36)
[2022-09-23] MEDS: IV NS 0.9% 250 ML IV PRN (05:44)
--- NOTE | 2022-09-23 06:26 | NUR ---
RN CLOSING NOTES: PT IN BED, BOTH EYES OPENED, OBTUNDED; ON TRACH TO VENT SETTINGS AND PT TOLERATED WELL. S#6, AC-20, TV-550, FIO2-40%, PEEP-OFF. BREATHING EVEN AND UNLABORED. IV ACCESS ON SHAN AND JAMES MIDLINE INTACT AND PATENT. GTF JEVITY 1.2 INCREASED TO 40ML/HR; NO RESIDUAL NOTED. HOB KEPT ELEVATED. NO FACIAL GRIMACING NOTED. NO ACUTE DISTRESS. ALL DUE MEDS GIVEN ORDERED. F/C IN PLACE, DRAINING BY GRAVITY. NOTED YELLOWISH/CLEAR URINE. ALL SAFETY MEASURES IN PLACE. BED IN LOWEST POSITION AND LOCKED. SIDE RAILS UP X3, PLACE CALL LIGHT WITH IN REACH. WILL ENDORSE TO MORNING SHIFT NURSE.
[2022-09-23 06:29] LABS: CALCIUM, SERUM 9.6 mg/dL (8.5-10.1); CREATININE 0.8 mg/dL (0.6-1.3); POTASSIUM 3.6 mmol/L (3.5-5.1)
--- NOTE | 2022-09-23 07:05 | NUR ---
RN OPENING NOTE PATIENT IN BED, ASLEEP, ON VENTILATOR, BREATHING EVEN AND UNLABORED. IV ACCESS ON SHAN AND JAMES MIDLINE INTACT AND PATENT. GTF JEVITY 1.2 @ 25ML/HR; NO RESIDUAL NOTED AT THIS MOMENT. HOB KEPT ELEVATED. NO ACUTE DISTRESS. F/C IN PLACE, DRAINING BY GRAVITY, YELLOWISH/CLEAR URINE. ALL SAFETY MEASURES IN PLACE. BED IN LOWEST POSITION AND LOCKED. SIDE RAILS UP X3, PLACE CALL LIGHT WITH IN REACH. WILL CONTINUE TO MONITOR
[2022-09-23 08:00] VITALS: BP 122/77
[2022-09-23] MEDS: DAKINS QUARTER STRENGTH (0.125%) 480 ML BOTTLE TOP SCH (08:11)
[2022-09-23] MEDS: Z GUARD REMEDY 4 OZ OINT TP PRN (08:12)
[2022-09-23] MEDS: LEVETIRACETAM SOL (5 ML) 100 MG/ML UDC GT SCH ×2 (08:13→21:36)
[2022-09-23] MEDS: FAMOTIDINE (20 MG) 20 MG TABLET GT SCH ×2 (08:14→21:36)
[2022-09-23] MEDS: ZINC SULFATE 220 MG CAPSULE GT SCH (08:14)
[2022-09-23] MEDS: MULTIVIT W/MINERALS 1 TAB TABLET GT SCH (08:14)
[2022-09-23] MEDS: PROSOURCE / PROSTAT (PYXIS) 30 ML UDC GT SCH ×3 (08:15→17:14)
[2022-09-23] MEDS: NEO/POLY-B/DEXAM OPHTH SUSP 5 ML BOTTLE LEFTEYE SCH ×3 (08:17→17:13)
[2022-09-23] MEDS: Z GUARD REMEDY 4 OZ OINT TP SCH (08:19)
[2022-09-23] MEDS: POTASSIUM CHLORIDE 20 MEQ POWDER PACKET GT SCH (08:20)
[2022-09-23 12:00] VITALS: BP 114/60
[2022-09-23 16:00] VITALS: BP 137/89
[2022-09-23] MEDS: ASCORBIC ACID 500 MG TABLET GT SCH (17:11)
[2022-09-23] MEDS: FERROUS SULFATE (325 MG) 325 MG/TAB TABLET GT SCH (17:11)
--- NOTE | 2022-09-23 19:37 | NUR ---
RN CLOSING NOTE PT IN BED; ON VENT TRACH; TOLERATING SETTINGS WELL; NO SOB AND DISTRESS NOTED; NO S/SX OF PAIN NOTED; ON TELE MONITOR; GTF JEVITY @ 67ML/HR; NO RESIDUAL NOTED; KEPT HOB ELEVATED; F/C IN PLACE DRAINING CLEAR YELLOW URINE; SHAN AND JAMES MIDLINE RUNNING NS @100MLS/HR. DUE MEDS GIVEN. NEEDS ATTENDED. KEPT CLEAN AND DRY. SAFETY MEASURES MAINTAINED. WITH HOB >30. WILL ENDORSE TO NEXT NURSE ON DUTY FOR CONTINUITY OF CARE.
[2022-09-23 20:00] VITALS: BP 140/90
--- NOTE | 2022-09-23 20:00 | NUR ---
LOADER MACHINE OPENING NOTE RECEIVED PT IN BED, EYES OPEN, NONVERBAL, PT RESPONSIVE TO TACTILE AND PAINFUL STIMULI ONLY. NO EVIDENCE OF PAIN OR DISCOMFORT NOTED AT THIS TIME. PT ON VENT, CURRENT SETTINGS: AC20 TV550 FIO2 40%, WELL SALEEM. NO SOB/NO ACUTE RESPIRATORY DISTRESS NOTED. SHAN AND JAMES ML CLEAN AND INTACT BOTH ON SL. PT ON GTF CURRENTLY RUNNING AT 67ML/HR WITH GOAL OF 70ML/HR, WELL SALEEM. HOB ELEVATED, ASPIRATION PRECAUTION OBSERVED. FC IN PLACED, DRAINING CLEAR YELLOW URINE BY GRAVITY. SAFETY PRECAUTION IMPLEMENTED: BED LOCKED AND IN LOWEST POSITION. WILL CONT POC.
[2022-09-24] VITALS: BP 118/80
[2022-09-24] MEDS: VANCOMYCIN 1.25 GM in IV D5W 250 ML IV SCH (00:37)
[2022-09-24] MEDS: IPRATROPIUM NEB FS 0.5 MG/2.5 ML AMPUL.NEB IH SCH ×4 (01:03→20:25)
[2022-09-24] MEDS: ALBUTEROL FS 2.5 MG/0.5 ML VIAL.NEB NEB SCH ×4 (01:03→20:25)
[2022-09-24] MEDS: ACETYLCYSTEINE 10% SOLN 400 MG/4 ML VIAL NEB SCH ×3 (01:03→14:08)
[2022-09-24] MEDS: JEVITY 1.2 CAL 1,000 ML BOTTLE GT PRN (03:43)
[2022-09-24 04:00] VITALS: BP 124/79
[2022-09-24] MEDS: CEFEPIME 2 GM in IV D5W 100 ML IV SCH ×3 (04:33→20:33)
[2022-09-24] MEDS: METOCLOPRAMIDE HCL 10 MG/2 ML VIAL IV SCH ×3 (04:33→20:32)
[2022-09-24] MEDS: POLYVINYL ALCOHOL 15 ML BOTTLE EACHEYE SCH ×3 (04:34→20:32)
[2022-09-24] MEDS: IV NS 0.9% 250 ML IV PRN (04:45)
[2022-09-24] MEDS ORDERED: LIDOCAINE 2%-EPI 1:100,000 30 ML VIAL TP ONE (06:00)
[2022-09-24] MEDS ORDERED: LIDOCAINE 1%-EPI 1:100,000 20 ML VIAL TP ONE (06:00)
--- NOTE | 2022-09-24 06:23 | NUR ---
SHEET CATCHER CLOSING NOTE PT IN BED, SLEEPING COMFORTABLY. NO S/SX OF PAIN/DISCOMFORT NOTED AT THIS TIME. REMAINS ON CURRENT VENT SETTINGS AC20 TV550 FIO2 40%, WELL SALEEM. NO ACUTE RESP DISTRESS. NO SIGNIFICANT CHANGES NOTED THROUGHOUT THE SHIFT. HOB ELEVATED, ASPIRATION PRECAUTIONS IMPLEMENTED. GTF CURRENTLY RUNNING JEVITY 1.2 @70ML/HR, WELL SALEEM. TURN AND REPOS Q2H/PRN. FC IN PLACED AND PATENT DRAINING CLEAR YELLOW URINE. ALL NEEDS ANTICIPATED, KEPT PT CLEAN AND DRY AT ALL TIMES. WILL ENDORSE TO AM SHIFT FOR [place].
[2022-09-24 07:29] LABS: BASOPHILS % (AUTO) 0.2 % (0.0-2.0); EOSINOPHILS % (AUTO) 2.9 % (0.0-6.0); HEMATOCRIT 25 % (39-51); HEMOGLOBIN 8.2 g/dL (13.5-17.5); LYMPHOCYTES # (AUTO) 1.2 K/uL (0.8-4.8); MEAN CORPUSCULAR HGB CONC 33 g/dl (31.0-36.0); MEAN CORPUSCULAR VOLUME 80 fL (80-96); MONOCYTES # (AUTO) 0.6 K/uL (0.1-1.30); MONOCYTES % (AUTO) 8.1 % (2.0-12.0); NEUTROPHILS # (AUTO) 5.3 K/uL (1.8-8.9); NEUTROPHILS % (AUTO) 72.8 % (43.0-81.0); PLATELET COUNT (AUTO) 238 K/uL (150-450); RED BLOOD CELL COUNT(AUTO) 3.13 MIL/uL (4.5-6.0); WHITE BLOOD COUNT (AUTO) 7.3 K/uL (4.3-11.0)
[2022-09-24 07:36] LABS: CREATININE 0.9 mg/dL (0.6-1.3)
--- NOTE | 2022-09-24 07:38 | NUR ---
RN NOTE PT RECEIVED IN BED, OBTUNDED. PT ON MECHANICAL VENTILATOR WITH TRACH, FIO2 40%, NO SIGNS OF LABORED BREATHING. TORRES CATH IN PLACE. GTUBE IN PLACE RUNNING JEVITY 1.2 AT 70ML/HR. RIGHT UA AND LEFT UA MIDLINE IN PLACE, NS TKO. BED LOCKED AND IN LOWEST POSITION, CALL LIGHT WITHIN REACH, 3 SIDE RAILS UP.
[2022-09-24 08:00] VITALS: BP 124/79
[2022-09-24] MEDS: LEVETIRACETAM SOL (5 ML) 100 MG/ML UDC GT SCH ×2 (08:22→20:32)
[2022-09-24] MEDS: ZINC SULFATE 220 MG CAPSULE GT SCH (08:22)
[2022-09-24] MEDS: FAMOTIDINE (20 MG) 20 MG TABLET GT SCH ×2 (08:22→20:32)
[2022-09-24] MEDS: MULTIVIT W/MINERALS 1 TAB TABLET GT SCH (08:22)
[2022-09-24] MEDS: POTASSIUM CHLORIDE 20 MEQ POWDER PACKET GT SCH (08:22)
[2022-09-24] MEDS ORDERED: CLONIDINE HCL 0.1 MG TABLET PO PRN (08:30)
[2022-09-24] MEDS: NEO/POLY-B/DEXAM OPHTH SUSP 5 ML BOTTLE LEFTEYE SCH ×3 (08:35→17:01)
[2022-09-24] MEDS: DAKINS QUARTER STRENGTH (0.125%) 480 ML BOTTLE TOP SCH (08:35)
[2022-09-24] MEDS: Z GUARD REMEDY 4 OZ OINT TP PRN ×2 (08:35→08:36)
[2022-09-24] MEDS: PROSOURCE / PROSTAT (PYXIS) 30 ML UDC GT SCH ×3 (08:35→17:00)
[2022-09-24] MEDS: Z GUARD REMEDY 4 OZ OINT TP SCH (08:37)
[2022-09-24 12:00] VITALS: BP 142/67
[2022-09-24 16:00] VITALS: BP 163/99
[2022-09-24] MEDS: ASCORBIC ACID 500 MG TABLET GT SCH (17:00)
[2022-09-24] MEDS: FERROUS SULFATE (325 MG) 325 MG/TAB TABLET GT SCH (17:00)
--- NOTE | 2022-09-24 18:38 | NUR ---
CLOSING NOTES: PT IN BED, BOTH EYES OPENED, OBTUNDED; ON TRACH TO VENT SETTINGS AND PT TOLERATED WELL. S#6, AC-20, TV-550, FIO2-40%, PEEP-OFF. BREATHING EVEN AND UNLABORED. IV ACCESS ON SHAN AND JAMES MIDLINE INTACT AND PATENT. GTF JEVITY 1.2 INCREASED TO 40ML/HR; NO RESIDUAL NOTED. HOB KEPT ELEVATED. NO ACUTE DISTRESS. ALL DUE MEDS GIVEN ORDERED. F/C IN PLACE, DRAINING BY GRAVITY. ALL SAFETY MEASURES IN PLACE. BED IN LOWEST POSITION AND LOCKED. SIDE RAILS UP X3, PLACE CALL LIGHT WITH IN REACH.
--- NOTE | 2022-09-24 19:30 | NUR ---
PLATE CONDITIONER OPENING NOTE RECEIVED PT IN BED, EYES OPEN, NONVERBAL, PT RESPONSIVE TO TACTILE AND PAINFUL STIMULI ONLY. NO EVIDENCE OF PAIN OR DISCOMFORT NOTED AT THIS TIME. PT ON VENT, CURRENT SETTINGS: AC20 TV550 FIO2 40%, TOLERATING WELL. NO SOB/NO ACUTE RESPIRATORY DISTRESS NOTED. IV ACCESS IN SHAN AND JAMES ML CLEAN AND INTACT, BOTH ON SL. ON GTF RUNNING JEVITY 1.2 AT 70 CC/HR. KEPT HOB ELEVATED, ASPIRATION PRECAUTIONS OBSERVED. FC IN PLACE DRAINING CLEAR YELLOW URINE BY GRAVITY. ALL SAFETY PRECAUTIONS IN PLACE: BED LOCKED AND IN LOWEST POSITION. BED ALARM ON, SR UP X 2, CALL LIGHT WITHIN REACH. WILL CONTINUE TO MONITOR.
[2022-09-24 20:00] VITALS: BP 112/76
[2022-09-25] VITALS: BP 124/88
--- NOTE | 2022-09-25 00:07 | NUR ---
EDGING MACHINE OPERATOR NOTE RECEIVED PT VIA [facility] FROM ER WITH ADMITTING DX OF GI BLEED. PT IS AWAKE, A/O X 3, ABLE TO VERBALIZE NEEDS IN TURKISH; CAN SPEAK A BIT OF POLISH, TOO. PT IS NOTED TO BE ALCOHOL INTOXICATED. ON RA, TOLERATING WELL, SATING @ 98%. SCRAP BREAKER SHOWS SR-ST WITH HR IN THE 90-100s. IV ACCESS IN RAC, #20g, HOOKED UP NS @ 120 CC/HR ORDERED. SKIN IS INTACT; WITH SCAR ON R FOOT, PT SAID IT'S A LITTLE PAINFUL. PHOTO TAKEN AND PLACED IN CHART. ALL SAFETY PRECAUTIONS IN PLACE: BED LOCKED IN LOW POSITION, BED ALARM ON. SR UP X 3, CALL LIGHT WITHIN REACH. WILL CONTINUE TO MONITOR PT. Addendum: 09/25/22 at 0014 by JERI ROJO RN PLEASE DISREGARD THIS ADMISSION NOTE. INTENDED FOR ANOTHER PT IN ROOM 107.
[2022-09-25] MEDS: ACETYLCYSTEINE 10% SOLN 400 MG/4 ML VIAL NEB SCH ×4 (01:09→23:49)
[2022-09-25] MEDS: IPRATROPIUM NEB FS 0.5 MG/2.5 ML AMPUL.NEB IH SCH ×4 (01:09→20:00)
[2022-09-25] MEDS: ALBUTEROL FS 2.5 MG/0.5 ML VIAL.NEB NEB SCH ×4 (01:09→20:00)
[2022-09-25 04:00] VITALS: BP 103/63
[2022-09-25] MEDS: METOCLOPRAMIDE HCL 10 MG/2 ML VIAL IV SCH ×3 (04:40→21:26)
[2022-09-25] MEDS: POLYVINYL ALCOHOL 15 ML BOTTLE EACHEYE SCH ×3 (04:40→21:31)
[2022-09-25] MEDS: CEFEPIME 2 GM in IV D5W 100 ML IV SCH ×3 (04:40→21:40)
[2022-09-25] MEDS: JEVITY 1.2 CAL 1,000 ML BOTTLE GT PRN ×2 (05:29→21:34)
--- NOTE | 2022-09-25 06:21 | NUR ---
RN NOTE NO SIGNIFICANT CHANGE T/O THE NIGHT. VSS. ALL DUE MEDS GIVEN. NEEDS MET. TURNED AND REPOSITIONED. WILL ENDORSE TO AM SHIFT NURSE FOR [place].
[2022-09-25 06:40] LABS: BASOPHILS % (AUTO) 0.2 % (0.0-2.0); EOSINOPHILS % (AUTO) 4.3 % (0.0-6.0); HEMATOCRIT 28 % (39-51); LYMPHOCYTES # (AUTO) 1.2 K/uL (0.8-4.8); MEAN CORPUSCULAR HGB CONC 33 g/dl (31.0-36.0); MEAN CORPUSCULAR VOLUME 80 fL (80-96); MONOCYTES # (AUTO) 0.5 K/uL (0.1-1.30); MONOCYTES % (AUTO) 7.4 % (2.0-12.0); NEUTROPHILS # (AUTO) 5.3 K/uL (1.8-8.9); NEUTROPHILS % (AUTO) 72.1 % (43.0-81.0); PLATELET COUNT (AUTO) 248 K/uL (150-450); RED BLOOD CELL COUNT(AUTO) 3.44 MIL/uL (4.5-6.0); WHITE BLOOD COUNT (AUTO) 7.4 K/uL (4.3-11.0)
[2022-09-25 07:02] LABS: CALCIUM, SERUM 10.2 mg/dL (8.5-10.1); CREATININE 0.9 mg/dL (0.6-1.3)
--- NOTE | 2022-09-25 07:20 | NUR ---
INTER COM SERVICER OPENING NOTE RECEIVED PT IN BED, EYES OPEN, NONVERBAL, PT RESPONSIVE TO TACTILE AND PAINFUL STIMULI ONLY. NO EVIDENCE OF PAIN OR DISCOMFORT NOTED AT THIS TIME. PT ON VENT, CURRENT SETTINGS: AC20 TV550 FIO2 40%, TOLERATING WELL. NO SOB/NO ACUTE RESPIRATORY DISTRESS NOTED. IV ACCESS IN SHAN AND JAMES ML CLEAN AND INTACT, BOTH ON SL. ON GTF RUNNING JEVITY 1.2 AT 70 CC/HR. KEPT HOB ELEVATED, ASPIRATION PRECAUTIONS OBSERVED. FC IN PLACE DRAINING CLEAR YELLOW URINE BY GRAVITY. ALL SAFETY PRECAUTIONS IN PLACE: BED LOCKED AND IN LOWEST POSITION. BED ALARM ON, SR UP X 2, CALL LIGHT WITHIN REACH.
[2022-09-25 08:00] VITALS: BP 113/75
[2022-09-25] MEDS: PROSOURCE / PROSTAT (PYXIS) 30 ML UDC GT SCH ×3 (08:09→17:02)
[2022-09-25] MEDS: DAKINS QUARTER STRENGTH (0.125%) 480 ML BOTTLE TOP SCH (08:10)
[2022-09-25] MEDS: NEO/POLY-B/DEXAM OPHTH SUSP 5 ML BOTTLE LEFTEYE SCH ×3 (08:10→17:02)
[2022-09-25] MEDS: POTASSIUM CHLORIDE 20 MEQ POWDER PACKET GT SCH (08:10)
[2022-09-25] MEDS: ZINC SULFATE 220 MG CAPSULE GT SCH (08:10)
[2022-09-25] MEDS: MULTIVIT W/MINERALS 1 TAB TABLET GT SCH (08:10)
[2022-09-25] MEDS: LEVETIRACETAM SOL (5 ML) 100 MG/ML UDC GT SCH ×2 (08:10→21:27)
[2022-09-25] MEDS: Z GUARD REMEDY 4 OZ OINT TP SCH (08:10)
[2022-09-25] MEDS: FAMOTIDINE (20 MG) 20 MG TABLET GT SCH ×2 (08:10→21:28)
--- NOTE | 2022-09-25 08:30 | NUR ---
RN NOTE MORNING RESIDUAL 190MLS. WILL HOLD TUBE FEEDING AT THIS MOMENT.
[2022-09-25 12:00] VITALS: BP 128/85
--- NOTE | 2022-09-25 12:00 | NUR ---
RN NOTE RESIDUAL CHECK 60M. RESUMED TUBE FEEDING 20MLS/HR
[2022-09-25] MEDS: VANCOMYCIN 1.25 GM in IV D5W 250 ML IV SCH (12:05)
[2022-09-25] MEDS: IV NS 0.9% 250 ML IV PRN (14:19)
[2022-09-25 16:00] VITALS: BP 109/59
--- NOTE | 2022-09-25 16:00 | NUR ---
RN NOTE INCREASED TUB FEEDING 40MLS/HR. GOAL 70MLS/HR
[2022-09-25] MEDS: FERROUS SULFATE (325 MG) 325 MG/TAB TABLET GT SCH (17:02)
[2022-09-25] MEDS: ASCORBIC ACID 500 MG TABLET GT SCH (17:02)
--- NOTE | 2022-09-25 18:35 | NUR ---
RN CLOSING NOTES: PT IN BED, BOTH EYES OPENED, OBTUNDED; ON TRACH TO VENT SETTINGS AND PT TOLERATED WELL. S#6, AC-20, TV-550, FIO2-40%, PEEP-OFF. BREATHING EVEN AND UNLABORED. IV ACCESS ON SHAN AND JAMES MIDLINE INTACT AND PATENT. GTF JEVITY 1.2 INCREASED TO 40ML/HR, WITH GOAL OF 70MLS/HR. HOB KEPT ELEVATED. NO ACUTE DISTRESS. ALL DUE MEDS GIVEN ORDERED. F/C IN PLACE, DRAINING BY GRAVITY. ALL SAFETY MEASURES IN PLACE. BED IN LOWEST POSITION AND LOCKED. SIDE RAILS UP X3, PLACE CALL LIGHT WITH IN REACH. WILL ENDORSE TO NIGHT NURSE FOR [place].
[2022-09-25 20:00] VITALS: BP 109/69
[2022-09-26] VITALS: BP 116/85
[2022-09-26] MEDS: IPRATROPIUM NEB FS 0.5 MG/2.5 ML AMPUL.NEB IH SCH ×4 (03:25→19:44)
[2022-09-26] MEDS: ALBUTEROL FS 2.5 MG/0.5 ML VIAL.NEB NEB SCH ×4 (03:25→19:44)
[2022-09-26] MEDS: METOCLOPRAMIDE HCL 10 MG/2 ML VIAL IV SCH ×3 (05:00→21:20)
[2022-09-26] MEDS: POLYVINYL ALCOHOL 15 ML BOTTLE EACHEYE SCH ×3 (05:02→21:21)
[2022-09-26] MEDS: CEFEPIME 2 GM in IV D5W 100 ML IV SCH ×3 (05:03→21:20)
--- NOTE | 2022-09-26 06:30 | NUR ---
END OF SHIFT REPORT Patient in bed, non verbal. Sinus rhythm with PVC HR 80. Trach intact, on mechanical vent, setting remains the same. SHAN/JAMES midline intact. Given abx for PNA, afebrile. Tolerating tube feeding, gastric residual 5ml. Now on goal rate 70ml/hr. Wound care done, turned and repositioned q2h, skin precaution maintained. No acute distress during the shift. Plan for continue abx 6 weeks total. Pending dc, family refuses 2 facility, CM following. Will endorse to oncoming RN.
[2022-09-26 07:18] LABS: BASOPHILS % (AUTO) 0.3 % (0.0-2.0); EOSINOPHILS % (AUTO) 4.9 % (0.0-6.0); HEMATOCRIT 27 % (39-51); HEMOGLOBIN 8.4 g/dL (13.5-17.5); LYMPHOCYTES # (AUTO) 1.5 K/uL (0.8-4.8); MEAN CORPUSCULAR HGB CONC 31 g/dl (31.0-36.0); MEAN CORPUSCULAR VOLUME 82 fL (80-96); MONOCYTES # (AUTO) 0.7 K/uL (0.1-1.30); NEUTROPHILS # (AUTO) 4.2 K/uL (1.8-8.9); NEUTROPHILS % (AUTO) 61.8 % (43.0-81.0); PLATELET COUNT (AUTO) 242 K/uL (150-450); RED BLOOD CELL COUNT(AUTO) 3.29 MIL/uL (4.5-6.0); WHITE BLOOD COUNT (AUTO) 6.7 K/uL (4.3-11.0)
[2022-09-26 07:36] LABS: CALCIUM, SERUM 10.1 mg/dL (8.5-10.1); CREATININE 0.9 mg/dL (0.6-1.3); PHOSPHORUS 4.1 mg/dL (2.5-4.9)
--- NOTE | 2022-09-26 07:54 | NUR ---
COMBER OPERATOR OPENING NOTE RECEIVED PT IN BED, EYES OPEN, NONVERBAL, PT RESPONSIVE TO TACTILE AND PAINFUL STIMULI.. NO SIGNS OF PAIN OR DISCOMFORT NOTED AT THIS TIME. PT ON VENT, CURRENT SETTINGS: AC20 TV550 FIO2 40%, TOLERATING WELL. NO SOB/NO ACUTE RESPIRATORY DISTRESS NOTED. IV ACCESS IN SHAN AND JAMES ML CLEAN AND INTACT, BOTH ON SL. ON GTF RUNNING JEVITY 1.2 AT 70 CC/HR. HOB ELEVATED AT ALL TIMES, ASPIRATION PRECAUTIONS OBSERVED. FC IN PLACE DRAINING CLEAR YELLOW URINE BY GRAVITY. ALL SAFETY PRECAUTIONS IN PLACE: BED LOCKED AND IN LOWEST POSITION. BED ALARM ON, SR UP X 2, CALL LIGHT WITHIN REACH.
[2022-09-26 08:00] VITALS: BP 107/71
[2022-09-26] MEDS: ACETYLCYSTEINE 10% SOLN 400 MG/4 ML VIAL NEB SCH ×3 (08:27→22:58)
[2022-09-26] MEDS: POTASSIUM CHLORIDE 20 MEQ POWDER PACKET GT SCH (08:29)
[2022-09-26] MEDS: MULTIVIT W/MINERALS 1 TAB TABLET GT SCH (08:29)
[2022-09-26] MEDS: LEVETIRACETAM SOL (5 ML) 100 MG/ML UDC GT SCH ×2 (08:29→21:20)
[2022-09-26] MEDS: ZINC SULFATE 220 MG CAPSULE GT SCH (08:29)
[2022-09-26] MEDS: FAMOTIDINE (20 MG) 20 MG TABLET GT SCH ×2 (08:29→21:20)
[2022-09-26] MEDS: DAKINS QUARTER STRENGTH (0.125%) 480 ML BOTTLE TOP SCH (08:39)
[2022-09-26] MEDS: PROSOURCE / PROSTAT (PYXIS) 30 ML UDC GT SCH ×3 (08:39→16:10)
[2022-09-26] MEDS: NEO/POLY-B/DEXAM OPHTH SUSP 5 ML BOTTLE LEFTEYE SCH ×3 (09:07→16:10)
[2022-09-26] MEDS: Z GUARD REMEDY 4 OZ OINT TP SCH (09:07)
--- NOTE | 2022-09-26 09:25 | NUR ---
RN NOTE CHECKED GASTRIC RESIDUAL VOLUME 200 ML. HOLD TUBE FEEDING AT THIS MOMENT AND WILL RECHECK.CONDITIONING YARD SUPERVISOR AWARE
[2022-09-26 12:00] VITALS: BP 114/78
[2022-09-26 16:00] VITALS: BP 115/74
[2022-09-26] MEDS: FERROUS SULFATE (325 MG) 325 MG/TAB TABLET GT SCH (17:01)
[2022-09-26] MEDS: ASCORBIC ACID 500 MG TABLET GT SCH (17:01)
--- NOTE | 2022-09-26 18:36 | NUR ---
ENGLISH ADJUNCT FACULTY CLOSING NOTE PT IN BED, EYES OPEN, NONVERBAL, PT RESPONSIVE TO TACTILE AND PAINFUL STIMULI. PT ON TELE MONITOR SINUS RHYTM 77. NO SIGNS OF PAIN OR DISCOMFORT NOTED AT THIS TIME. PT ON VENT, CURRENT SETTINGS: AC20 TV550 FIO2 40%, TOLERATING WELL. 02 SAT @ 100%. NO SOB/NO ACUTE RESPIRATORY DISTRESS NOTED. IV ACCESS IN SHAN AND JAMES ML CLEAN, PATENT, INTACT AND FLUSHING WELL, BOTH ON SL. ON GTF RUNNING JEVITY 1.2 AT 70 CC/HR. NO RESIDUAL VOLUME NOTED AT THIS TIME. HOB ELEVATED AT ALL TIMES, ASPIRATION PRECAUTIONS OBSERVED. FC IN PLACE DRAINING CLEAR YELLOW URINE BY GRAVITY. ALL SAFETY PRECAUTIONS IN PLACE: BED LOCKED AND IN LOWEST POSITION. BED ALARM ON, SR UP X 2, CALL LIGHT WITHIN REACH.will ENDORSED TO MEDICAL RECORDS RECEPTIONIST RN FOR CONTUITY OF CARE
--- NOTE | 2022-09-26 19:25 | NUR ---
BUILDING CONSULTANT OPENING NOTE RECEIVED PT IN BED, NONVERBAL, PT RESPONSIVE TO TACTILE AND PAINFUL STIMULI. NO SIGNS OF PAIN OR DISCOMFORT NOTED AT THIS TIME. PT ON VENT, CURRENT SETTINGS: AC 20 TV 550 FIO2 40%, TOLERATING WELL. NO SOB/NO ACUTE RESPIRATORY DISTRESS NOTED. IV ACCESS IN SHAN AND JAMES ML CLEAN AND INTACT, BOTH ON SL. ON GTF RUNNING JEVITY 1.2 AT 70 CC/HR. HOB ELEVATED AT ALL TIMES, ASPIRATION PRECAUTIONS OBSERVED. FC IN PLACE DRAINING CLEAR YELLOW URINE BY GRAVITY. ALL SAFETY PRECAUTIONS IN PLACE: BED LOCKED AND IN LOWEST POSITION. BED ALARM ON, SR UP X 2, CALL LIGHT WITHIN REACH. WILL CONT TO MONITOR THROUGHOUT THE SHIFT.
[2022-09-26 20:00] VITALS: BP 110/68
[2022-09-27] VITALS (9 sets, daily range): BP systolic 102–150; BP diastolic 61–84
[2022-09-27] MEDS: JEVITY 1.2 CAL 1,000 ML BOTTLE GT PRN (00:03)
[2022-09-27] MEDS: VANCOMYCIN 1.25 GM in IV D5W 250 ML IV SCH (00:03)
[2022-09-27] MEDS: IPRATROPIUM NEB FS 0.5 MG/2.5 ML AMPUL.NEB IH SCH ×4 (01:13→20:35)
[2022-09-27] MEDS: ALBUTEROL FS 2.5 MG/0.5 ML VIAL.NEB NEB SCH ×4 (01:13→20:36)
[2022-09-27] MEDS: METOCLOPRAMIDE HCL 10 MG/2 ML VIAL IV SCH ×3 (04:57→20:58)
[2022-09-27] MEDS: CEFEPIME 2 GM in IV D5W 100 ML IV SCH ×3 (04:57→20:58)
[2022-09-27] MEDS: POLYVINYL ALCOHOL 15 ML BOTTLE EACHEYE SCH ×3 (05:12→20:58)
--- NOTE | 2022-09-27 06:44 | NUR ---
DIVE SUPERVISOR CLOSING NOTE PT IN BED, EYES OPEN, NONVERBAL, PT RESPONSIVE TO TACTILE AND PAINFUL STIMULI. PT ON TELE MONITOR SR AT 94. NO SIGNS OF PAIN OR DISCOMFORT NOTED AT THIS TIME. PT ON VENT SETTING TOLERATING WELL. 02 SAT @ 98%. IV ACCESS IN SHAN AND JAMES ML CLEAN, PATENT, INTACT AND FLUSHING WELL, BOTH ON SL. ON GTF RUNNING JEVITY 1.2 AT 70 CC/HR. NO RESIDUAL NOTED. HOB ELEVATED AT ALL TIMES, ASPIRATION PRECAUTIONS OBSERVED. FC IN PLACE DRAINING CLEAR YELLOW URINE BY GRAVITY. ALL DUE MEDS GIVEN, KEPT DRY AND CLEAN, ALL SAFETY PRECAUTIONS IN PLACE: BED LOCKED AND IN LOWEST POSITION. BED ALARM ON, SR UP X 2, CALL LIGHT WITHIN REACH. WILL ENDORSE TO AM SHIFT NURSE FOR CONTINUITY OF CARE.
[2022-09-27 07:21] LABS: CREATININE 0.9 mg/dL (0.6-1.3); POTASSIUM 4.1 mmol/L (3.5-5.1)
[2022-09-27] MEDS: ACETYLCYSTEINE 10% SOLN 400 MG/4 ML VIAL NEB SCH ×3 (07:32→22:55)
--- NOTE | 2022-09-27 07:40 | NUR ---
PROFESSOR OF COMMUNICATION AND WRITING OPENING NOTE RECEIVED PT IN BED, EYES OPEN, NONVERBAL, PT RESPONSIVE TO TACTILE AND PAINFUL STIMULI.. NO SIGNS OF PAIN OR DISCOMFORT NOTED AT THIS TIME. PT ON VENT, CURRENT SETTINGS: AC20 TV550 FIO2 40%, TOLERATING WELL. NO SOB/NO ACUTE RESPIRATORY DISTRESS NOTED. IV ACCESS IN SHAN AND JAMES ML CLEAN AND INTACT, BOTH ON SL. ON GTF RUNNING JEVITY 1.2 AT 70 CC/HR. NO RESIDUAL VOLUME NOTED AT THIS TIME HOB ELEVATED AT ALL TIMES, ASPIRATION PRECAUTIONS OBSERVED. FC IN PLACE DRAINING CLEAR YELLOW URINE BY GRAVITY. ALL SAFETY PRECAUTIONS IN PLACE: BED LOCKED AND IN LOWEST POSITION. BED ALARM ON, SR UP X 2, CALL LIGHT WITHIN REACH.
[2022-09-27] MEDS: LEVETIRACETAM SOL (5 ML) 100 MG/ML UDC GT SCH ×2 (09:14→20:58)
[2022-09-27] MEDS: FAMOTIDINE (20 MG) 20 MG TABLET GT SCH ×2 (09:14→20:58)
[2022-09-27] MEDS: POTASSIUM CHLORIDE 20 MEQ POWDER PACKET GT SCH (09:14)
[2022-09-27] MEDS: PROSOURCE / PROSTAT (PYXIS) 30 ML UDC GT SCH ×3 (09:14→18:00)
[2022-09-27] MEDS: MULTIVIT W/MINERALS 1 TAB TABLET GT SCH (09:15)
[2022-09-27] MEDS: Z GUARD REMEDY 4 OZ OINT TP SCH (09:15)
[2022-09-27] MEDS: DAKINS QUARTER STRENGTH (0.125%) 480 ML BOTTLE TOP SCH (09:15)
[2022-09-27] MEDS: ZINC SULFATE 220 MG CAPSULE GT SCH (09:15)
[2022-09-27] MEDS: NEO/POLY-B/DEXAM OPHTH SUSP 5 ML BOTTLE LEFTEYE SCH ×3 (09:16→18:01)
--- NOTE | 2022-09-27 14:00 | NUR ---
RN NOTE RECEIVED CALL FROM PHARMACIST FOR SPUTUM CULTURE.
[2022-09-27] MEDS: FERROUS SULFATE (325 MG) 325 MG/TAB TABLET GT SCH (18:00)
[2022-09-27] MEDS: ASCORBIC ACID 500 MG TABLET GT SCH (18:00)
--- NOTE | 2022-09-27 19:30 | NUR ---
CRIME SCENE INVESTIGATOR OPENING NOTE RECEIVED PT IN BED, NONVERBAL, PT RESPONSIVE TO TACTILE AND PAINFUL STIMULI. NO SIGNS OF PAIN OR DISCOMFORT NOTED AT THIS TIME. PT ON VENT, CURRENT SETTINGS: AC 20 TV 550 FIO2 40%, TOLERATING WELL. NO SOB/NO ACUTE RESPIRATORY DISTRESS NOTED AT THIS TIME. IV ACCESS IN SHAN AND JAMES ML CLEAN AND INTACT, BOTH ON SL. ON GTF RUNNING JEVITY 1.2 AT 70 CC/HR. HOB ELEVATED AT ALL TIMES, ASPIRATION PRECAUTIONS OBSERVED. FC IN PLACE DRAINING CLEAR YELLOW URINE BY GRAVITY. ALL SAFETY PRECAUTIONS IN PLACE: BED LOCKED AND IN LOWEST POSITION. BED ALARM ON, SR UP X 2, CALL LIGHT WITHIN REACH. WILL CONT TO MONITOR THROUGHOUT THE SHIFT.
--- NOTE | 2022-09-27 19:45 | NUR ---
SPINAL SURGEON CLOSING NOTE PT IN BED, EYES OPEN, NONVERBAL, PT RESPONSIVE TO TACTILE AND PAINFUL STIMULI. PT ON TELE MONITOR SINUS RHYTHM. NO SIGNS OF PAIN OR DISCOMFORT NOTED AT THIS TIME. PT ON VENT, CURRENT SETTINGS: AC20 TV550 FIO2 40%, TOLERATING WELL. 02 SAT @ 100%. NO SOB/NO ACUTE RESPIRATORY DISTRESS NOTED. IV ACCESS IN SHAN AND JAMES ML CLEAN, PATENT, INTACT AND FLUSHING WELL, BOTH ON SL. ON GTF RUNNING JEVITY 1.2 AT 70 CC/HR. NO RESIDUAL VOLUME NOTED AT THIS TIME. HOB ELEVATED AT ALL TIMES, ASPIRATION PRECAUTIONS OBSERVED. FC IN PLACE DRAINING CLEAR YELLOW URINE BY GRAVITY. ALL SAFETY PRECAUTIONS IN PLACE: BED LOCKED AND IN LOWEST POSITION. BED ALARM ON, SR UP X 2, CALL LIGHT WITHIN REACH.will ENDORSED TO HAND FRETTED INSTRUMENT MAKER RN FOR CONTUITY OF CARE
[2022-09-28] VITALS: BP 102/66
[2022-09-28] MEDS: IPRATROPIUM NEB FS 0.5 MG/2.5 ML AMPUL.NEB IH SCH ×4 (01:46→19:31)
[2022-09-28] MEDS: ALBUTEROL FS 2.5 MG/0.5 ML VIAL.NEB NEB SCH ×4 (01:46→19:31)
[2022-09-28 04:00] VITALS: BP 104/66
[2022-09-28] MEDS: CEFEPIME 2 GM in IV D5W 100 ML IV SCH ×3 (05:05→20:49)
[2022-09-28] MEDS: POLYVINYL ALCOHOL 15 ML BOTTLE EACHEYE SCH ×3 (05:05→21:03)
[2022-09-28] MEDS: METOCLOPRAMIDE HCL 10 MG/2 ML VIAL IV SCH ×3 (05:06→20:49)
--- NOTE | 2022-09-28 06:22 | NUR ---
RN NOTE NO SIGNIFICANT CHANGE T/O THE NIGHT. ALL VSS. DUE MEDS GIVEN. NEEDS MET. TURNED AND REPOSITIONED. WILL ENDORSE TO AM SHIFT NURSE FOR [place].
--- NOTE | 2022-09-28 07:30 | NUR ---
STEAM POWER PLANT OPERATOR AM NOTE RECEIVED PT IN BED, NONVERBAL, OBTUNDED, RESPONSIVE TO TACTILE AND PAINFUL STIMULI. NO SIGNS OF PAIN OR DISCOMFORT NOTED AT THIS TIME. PT WITH SH 8 TRACH, TO MECHANICAL VENT, CURRENT SETTINGS: AC 20 TV 550 FIO2 40%, TOLERATING WELL. RESPIRATION UNLABORED AND EVEN, SR HR 71 ON MONITOR, NO AIGNS OF PAIN/GRIMACINGS, IV ACCESS IN SHAN AND JAMES ML FLUSHES WELL, BOTH SITES CLEAR. ON GTF RUNNING JEVITY 1.2 AT 70 CC/HR. CHECKED PLACEMENT RESIDUAL 20ML. HOB ELEVATED AT ALL TIMES, ASPIRATION PRECAUTIONS OBSERVED. FC IN PLACE DRAINING CLEAR YELLOW URINE BY GRAVITY. SEE NURSING FLOWSHEET FOR SKIN ISSUES. ALL SAFETY PRECAUTIONS IN PLACE: BED LOCKED AND IN LOWEST POSITION. BED ALARM ON, SR UP X 2, CALL LIGHT WITHIN REACH. WILL CONT TO MONITOR THROUGHOUT THE SHIFT.
[2022-09-28] MEDS: ACETYLCYSTEINE 10% SOLN 400 MG/4 ML VIAL NEB SCH ×3 (07:40→23:30)
[2022-09-28 07:42] LABS: CALCIUM, SERUM 10.5 mg/dL (8.5-10.1); POTASSIUM 4.2 mmol/L (3.5-5.1)
[2022-09-28 08:00] VITALS: BP 115/77
[2022-09-28] MEDS: LEVETIRACETAM SOL (5 ML) 100 MG/ML UDC GT SCH ×2 (08:51→20:49)
[2022-09-28] MEDS: POTASSIUM CHLORIDE 20 MEQ POWDER PACKET GT SCH (08:52)
[2022-09-28] MEDS: FAMOTIDINE (20 MG) 20 MG TABLET GT SCH ×2 (08:52→20:49)
[2022-09-28] MEDS: MULTIVIT W/MINERALS 1 TAB TABLET GT SCH (08:52)
[2022-09-28] MEDS: ZINC SULFATE 220 MG CAPSULE GT SCH (08:52)
[2022-09-28] MEDS: PROSOURCE / PROSTAT (PYXIS) 30 ML UDC GT SCH ×3 (08:54→17:28)
[2022-09-28] MEDS: NEO/POLY-B/DEXAM OPHTH SUSP 5 ML BOTTLE LEFTEYE SCH ×3 (08:55→17:28)
[2022-09-28] MEDS: DAKINS QUARTER STRENGTH (0.125%) 480 ML BOTTLE TOP SCH (09:25)
[2022-09-28] MEDS: Z GUARD REMEDY 4 OZ OINT TP SCH (09:26)
--- NOTE | 2022-09-28 09:30 | NUR ---
RN NOTES DUE MEDS GIVEN
[2022-09-28] MEDS: VANCOMYCIN 1.25 GM in IV D5W 250 ML IV SCH (11:25)
[2022-09-28 12:00] VITALS: BP 111/70
[2022-09-28] MEDS: JEVITY 1.2 CAL 1,000 ML BOTTLE GT PRN (14:55)
--- NOTE | 2022-09-28 15:45 | NUR ---
RN NOTES CADE BRISENO AT BEDSIDE FOR SCALP WOUND DEBRIDEMENT
[2022-09-28 16:00] VITALS: BP 100/64
[2022-09-28] MEDS: FERROUS SULFATE (325 MG) 325 MG/TAB TABLET GT SCH (17:28)
[2022-09-28] MEDS: ASCORBIC ACID 500 MG TABLET GT SCH (17:28)
--- NOTE | 2022-09-28 18:31 | NUR ---
PAINTING CONTRACTOR CLOSING NOTE PT IN BED, NONVERBAL, OBTUNDED, RESPONSIVE TO TACTILE AND PAINFUL STIMULI. NO SIGNS OF PAIN OR DISCOMFORT NOTED AT THIS TIME. PT WITH SH 8 TRACH, TO MECHANICAL VENT, CURRENT SETTINGS: AC 20 TV 550 FIO2 40%, TOLERATING WELL. RESPIRATION UNLABORED AND EVEN, SR HR 77 ON MONITOR, NO SIGNS OF PAIN/GRIMACINGS, IV ACCESS IN SHAN AND JAMES ML FLUSHES WELL, BOTH SITES CLEAR. ON GTF RUNNING JEVITY 1.2 AT 70 CC/HR. CHECKED PLACEMENT RESIDUAL 20ML. HOB ELEVATED AT ALL TIMES, ASPIRATION PRECAUTIONS OBSERVED. FC IN PLACE DRAINING CLEAR YELLOW URINE BY GRAVITY. OUTPUT OF 800 ML. ALL SAFETY PRECAUTIONS IN PLACE: BED LOCKED AND IN LOWEST POSITION. BED ALARM ON, SR UP X 2, CALL LIGHT WITHIN REACH. PRESCRIBED WOUND TREATMENT AND PM CARE DONE EARLIER. SUCTION PRN. TURNED AND REPOSITIONED Q 2 HOURS. ALL NEEDS MET AT THIS TIME. WILL ENDORSE TO NEXT SHIFT FOR [place].
--- NOTE | 2022-09-28 19:30 | NUR ---
PLYWOOD AND VENEER REPAIRER NOTE RECEIVED PT IN BED, NONVERBAL, OBTUNDED, RESPONSIVE TO TACTILE AND PAINFUL STIMULI. NO SIGNS OF PAIN OR DISCOMFORT NOTED AT THIS TIME. PT WITH SH 8 TRACH, TO MECHANICAL VENT, CURRENT SETTINGS: AC 20 TV 550 FIO2 40%, TOLERATING WELL. RESPIRATION UNLABORED AND EVEN, SR HR 80 ON MONITOR. IV ACCESS IN SHAN AND JAMES ML FLUSHES WELL, BOTH SITES CLEAR. ON GTF RUNNING JEVITY 1.2 AT 70 CC/HR. CHECKED PLACEMENT RESIDUAL 10ML. HOB ELEVATED AT ALL TIMES, ASPIRATION PRECAUTIONS OBSERVED. FC IN PLACE DRAINING CLEAR YELLOW URINE BY GRAVITY. ALL SAFETY PRECAUTIONS IN PLACE: BED LOCKED AND IN LOWEST POSITION. BED ALARM ON, SR UP X 2, CALL LIGHT WITHIN REACH. WILL CONT TO MONITOR THROUGHOUT THE SHIFT.
[2022-09-28] MEDS: ACETAMINOPHEN 650 MG/20.3 ML UDC GT PRN (19:36)
--- NOTE | 2022-09-28 19:43 | NUR ---
RN NOTE PT HAS SLIGHTLY ELEVATED TEMP. PT IN NO APPARENT RESPI DISTRESS. TYLENOL GIVEN ORDERED. COOL COMPRESS PROVIDED. WILL CONTINUE TO MONITOR.
[2022-09-28 20:00] VITALS: BP 109/75
[2022-09-29] VITALS: BP 106/72
[2022-09-29] MEDS: ACETYLCYSTEINE 10% SOLN 400 MG/4 ML VIAL NEB SCH ×4 (00:23→23:54)
[2022-09-29] MEDS: ALBUTEROL FS 2.5 MG/0.5 ML VIAL.NEB NEB SCH ×4 (01:42→19:12)
[2022-09-29] MEDS: IPRATROPIUM NEB FS 0.5 MG/2.5 ML AMPUL.NEB IH SCH ×4 (01:42→19:12)
[2022-09-29] MEDS: ACETAMINOPHEN 650 MG/20.3 ML UDC GT PRN (01:58)
[2022-09-29 04:00] VITALS: BP 97/65
[2022-09-29] MEDS: POLYVINYL ALCOHOL 15 ML BOTTLE EACHEYE SCH ×3 (04:31→20:43)
[2022-09-29] MEDS: CEFEPIME 2 GM in IV D5W 100 ML IV SCH ×3 (04:31→20:44)
[2022-09-29] MEDS: METOCLOPRAMIDE HCL 10 MG/2 ML VIAL IV SCH ×3 (04:31→20:44)
--- NOTE | 2022-09-29 07:20 | NUR ---
CLOTHING MANAGER AM NOTE RECEIVED PT IN BED, NONVERBAL, OBTUNDED, RESPONSIVE TO TACTILE AND PAINFUL STIMULI. NO SIGNS OF PAIN OR DISCOMFORT NOTED AT THIS TIME. PT WITH SH 8 TRACH, TO MECHANICAL VENT, CURRENT SETTINGS: AC 20 TV 550 FIO2 40%, TOLERATING WELL. RESPIRATION UNLABORED AND EVEN, SR HR 71 ON MONITOR, NO AIGNS OF PAIN/GRIMACINGS, IV ACCESS IN SHAN AND JAMES ML FLUSHES WELL, BOTH SITES CLEAR. ON GTF RUNNING JEVITY 1.2 AT 70 CC/HR. CHECKED PLACEMENT NO RESIDUAL HOB ELEVATED AT ALL TIMES, ASPIRATION PRECAUTIONS OBSERVED. FC IN PLACE DRAINING CLEAR YELLOW URINE BY GRAVITY. ALL SAFETY PRECAUTIONS IN PLACE: BED LOCKED AND IN LOWEST POSITION. BED ALARM ON, SR UP X 2, CALL LIGHT WITHIN REACH. WILL CONT TO MONITOR THROUGHOUT THE SHIFT.
[2022-09-29 08:00] VITALS: BP 106/72
[2022-09-29] MEDS: JEVITY 1.2 CAL 1,000 ML BOTTLE GT PRN (08:18)
[2022-09-29] MEDS: FAMOTIDINE (20 MG) 20 MG TABLET GT SCH ×2 (08:22→20:44)
[2022-09-29] MEDS: MULTIVIT W/MINERALS 1 TAB TABLET GT SCH (08:23)
[2022-09-29] MEDS: POTASSIUM CHLORIDE 20 MEQ POWDER PACKET GT SCH (08:23)
[2022-09-29] MEDS: LEVETIRACETAM SOL (5 ML) 100 MG/ML UDC GT SCH ×2 (08:23→20:44)
[2022-09-29] MEDS: ZINC SULFATE 220 MG CAPSULE GT SCH (08:23)
[2022-09-29] MEDS: PROSOURCE / PROSTAT (PYXIS) 30 ML UDC GT SCH ×3 (08:25→17:02)
[2022-09-29] MEDS: DAKINS QUARTER STRENGTH (0.125%) 480 ML BOTTLE TOP SCH (08:27)
[2022-09-29] MEDS: NEO/POLY-B/DEXAM OPHTH SUSP 5 ML BOTTLE LEFTEYE SCH ×3 (08:27→17:04)
[2022-09-29] MEDS: Z GUARD REMEDY 4 OZ OINT TP SCH (08:28)
[2022-09-29 08:37] LABS: CALCIUM, SERUM 10.3 mg/dL (8.5-10.1); CREATININE 1.3 mg/dL (0.6-1.3); POTASSIUM 4.3 mmol/L (3.5-5.1)
[2022-09-29 12:00] VITALS: BP 95/68
[2022-09-29 12:43] LABS: ABG BASE EXCESS 0.3 mmol/L; ABG OXYGEN SATURATION 96.1 % (92.0-98.5); ABG PCO2 37.1 mmHg (35.0-45.0); ABG PH 7.436 (7.350-7.450); AaDO2 154.5 mmHg; COHb 0.3 % (0.5-1.5); MetHb 0.3 % (0.0-1.5); O2Hb 95.5 % (94.0-97.0); PEEP,BG 0 cm H2O; SITE, ABG Right Radial; VT, ABG 550 mL
[2022-09-29 16:10] VITALS: BP 130/66
[2022-09-29] MEDS: ASCORBIC ACID 500 MG TABLET GT SCH (17:02)
[2022-09-29] MEDS: FERROUS SULFATE (325 MG) 325 MG/TAB TABLET GT SCH (17:02)
--- NOTE | 2022-09-29 19:16 | NUR ---
FLORAL MERCHANDISER CLOSING NOTE RECEIVED PT IN BED, NONVERBAL, OBTUNDED, RESPONSIVE TO TACTILE AND PAINFUL STIMULI. NO SIGNS OF PAIN OR DISCOMFORT NOTED AT THIS TIME. PT WITH SH 8 TRACH, TO MECHANICAL VENT, CURRENT SETTINGS: AC 20 TV 550 FIO2 40%, TOLERATING WELL. RESPIRATION UNLABORED AND EVEN, SR HR 71 ON MONITOR, NO AIGNS OF PAIN/GRIMACINGS, IV ACCESS IN SHAN AND JAMES ML FLUSHES WELL, BOTH SITES CLEAR. ON GTF RUNNING JEVITY 1.2 AT 70 CC/HR. CHECKED PLACEMENT NO RESIDUAL HOB ELEVATED AT ALL TIMES, ASPIRATION PRECAUTIONS OBSERVED. FC IN PLACE DRAINING CLEAR YELLOW URINE BY GRAVITY. ALL SAFETY PRECAUTIONS IN PLACE: BED LOCKED AND IN LOWEST POSITION. BED ALARM ON, SR UP X 2, CALL LIGHT WITHIN REACH. WILL ENDORSE ROUSTABOUT PUSHER NURSE TO FALLOW POC.
[2022-09-29 22:01] VITALS: BP 129/61
[2022-09-29] MEDS: VANCOMYCIN 1.25 GM in IV D5W 250 ML IV SCH (23:04)
[2022-09-30] VITALS (7 sets, daily range): BP systolic 84–118; BP diastolic 55–77
[2022-09-30] MEDS: ALBUTEROL FS 2.5 MG/0.5 ML VIAL.NEB NEB SCH ×4 (02:27→19:49)
[2022-09-30] MEDS: IPRATROPIUM NEB FS 0.5 MG/2.5 ML AMPUL.NEB IH SCH ×4 (02:27→19:49)
[2022-09-30] MEDS: METOCLOPRAMIDE HCL 10 MG/2 ML VIAL IV SCH ×3 (05:27→21:13)
[2022-09-30] MEDS: CEFEPIME 2 GM in IV D5W 100 ML IV SCH ×4 (05:27→21:13)
[2022-09-30] MEDS: POLYVINYL ALCOHOL 15 ML BOTTLE EACHEYE SCH ×3 (05:27→21:12)
[2022-09-30] MEDS: MIDODRINE HCL (5MG) 5 MG TABLET GT PRN (05:36)
[2022-09-30 06:21] LABS: CALCIUM, SERUM 11.1 mg/dL (8.5-10.1); CREATININE 1.4 mg/dL (0.6-1.3); POTASSIUM 4.3 mmol/L (3.5-5.1)
--- NOTE | 2022-09-30 07:40 | NUR ---
LEATHER FINISHER OPENING NOTE RECEIVED PT IN BED, NONVERBAL, OBTUNDED, RESPONSIVE TO TACTILE AND PAINFUL STIMULI. NO SIGNS OF PAIN OR DISCOMFORT NOTED AT THIS TIME. PT WITH SH 8 TRACH, TO MECHANICAL VENT, CURRENT SETTINGS: AC 20 TV 550 FIO2 40%, TOLERATING WELL. RESPIRATION UNLABORED AND EVEN, SR ON TELE MONITOR, NO SIGNS OF PAIN/GRIMACING, IV ACCESS IN SHAN AND JAMES ML FLUSHES WELL, INTACT AND PATENT. ON GTF RUNNING JEVITY 1.2 AT 70 CC/HR. CHECKED PLACEMENT NO RESIDUAL.HOB ELEVATED AT ALL TIMES, ASPIRATION PRECAUTIONS OBSERVED. FC IN PLACE DRAINING CLEAR YELLOW URINE BY GRAVITY. ALL SAFETY PRECAUTIONS IN PLACE: BED LOCKED AND IN LOWEST POSITION. BED ALARM ON, SR UP X 2,
[2022-09-30] MEDS: DAKINS QUARTER STRENGTH (0.125%) 480 ML BOTTLE TOP SCH (08:13)
[2022-09-30] MEDS: POTASSIUM CHLORIDE 20 MEQ POWDER PACKET GT SCH (08:13)
[2022-09-30] MEDS: LEVETIRACETAM SOL (5 ML) 100 MG/ML UDC GT SCH ×2 (08:13→21:12)
[2022-09-30] MEDS: MULTIVIT W/MINERALS 1 TAB TABLET GT SCH (08:13)
[2022-09-30] MEDS: ZINC SULFATE 220 MG CAPSULE GT SCH (08:13)
[2022-09-30] MEDS: FAMOTIDINE (20 MG) 20 MG TABLET GT SCH ×2 (08:13→21:13)
[2022-09-30] MEDS: NEO/POLY-B/DEXAM OPHTH SUSP 5 ML BOTTLE LEFTEYE SCH ×3 (08:13→17:05)
[2022-09-30] MEDS: ACETYLCYSTEINE 10% SOLN 400 MG/4 ML VIAL NEB SCH ×3 (08:27→23:06)
[2022-09-30] MEDS: PROSOURCE / PROSTAT (PYXIS) 30 ML UDC GT SCH ×3 (08:56→17:05)
[2022-09-30] MEDS: Z GUARD REMEDY 4 OZ OINT TP SCH (12:51)
[2022-09-30] MEDS: JEVITY 1.2 CAL 1,000 ML BOTTLE GT PRN (13:02)
[2022-09-30] MEDS: FERROUS SULFATE (325 MG) 325 MG/TAB TABLET GT SCH (17:05)
[2022-09-30] MEDS: ASCORBIC ACID 500 MG TABLET GT SCH (17:05)
--- NOTE | 2022-09-30 19:10 | NUR ---
noc rn opening note received patient in bed, obtunded. patient no s/s of apparent distress-- vent dependent. not exhibiting pain via flacc. reading nsr on the tele monitor. no fluids running at this time. Patient GTube running Jevity 1.2 @70mls/hr. li catheter noted in place. safety in place. will continue with patient's plan of care.
--- NOTE | 2022-09-30 19:21 | NUR ---
INSTRUMENTATION AND CONTROLS DESIGNER CLOSING NOTE PT IN BED, NONVERBAL, OBTUNDED, RESPONSIVE TO TACTILE AND PAINFUL STIMULI. NO SIGNS OF PAIN OR DISCOMFORT NOTED AT THIS TIME. PT WITH SH 8 TRACH, TO MECHANICAL VENT, CURRENT SETTINGS: AC 20 TV 550 FIO2 40%, TOLERATING WELL. RESPIRATION UNLABORED AND EVEN, SR ON TELE MONITOR, IV ACCESS IN SHAN AND JAMES ML FLUSHES WELL, INTACT AND PATENT. ON GTF RUNNING JEVITY 1.2 AT 70 CC/HR. NO RESIDUAL VOLUME NOTED. .HOB ELEVATED AT ALL TIMES, ASPIRATION PRECAUTIONS OBSERVED. FC IN PLACE DRAINING CLEAR YELLOW URINE BY GRAVITY. ALL SAFETY PRECAUTIONS IN PLACE: BED LOCKED AND IN LOWEST POSITION. BED ALARM ON, SR UP X 2, ENDORSED TO CONE TRUCKER RN FOR CONUTIY OF CARE
[2022-10-01] VITALS: BP 106/68
[2022-10-01] MEDS: ALBUTEROL FS 2.5 MG/0.5 ML VIAL.NEB NEB SCH ×3 (02:21→13:30)
[2022-10-01] MEDS: IPRATROPIUM NEB FS 0.5 MG/2.5 ML AMPUL.NEB IH SCH ×3 (02:21→13:30)
[2022-10-01 04:00] VITALS: BP 111/75
[2022-10-01] MEDS: METOCLOPRAMIDE HCL 10 MG/2 ML VIAL IV SCH ×2 (05:07→13:05)
[2022-10-01] MEDS: CEFEPIME 2 GM in IV D5W 100 ML IV SCH ×2 (05:07→14:22)
[2022-10-01] MEDS: POLYVINYL ALCOHOL 15 ML BOTTLE EACHEYE SCH ×2 (05:08→13:05)
--- NOTE | 2022-10-01 05:29 | NUR ---
noc rn note Vial for 0500 Maxipime leaking hence had to use the 10 pm one. Bag of Maxipime discarded at proper waste bin, made Rosemarie charge nurse aware. will call Pharmacy when they open.
[2022-10-01 07:25] LABS: CALCIUM, SERUM 10.9 mg/dL (8.5-10.1); CREATININE 1.6 mg/dL (0.6-1.3); POTASSIUM 3.8 mmol/L (3.5-5.1)
--- NOTE | 2022-10-01 07:30 | NUR ---
noc rn closing note needs attended. no significant change. endorsed to STEVE Nair for continuity of patient care.
--- NOTE | 2022-10-01 07:35 | NUR ---
HEAD REFRIGERATION ENGINEER OPENING NOTE PT IN BED, NONVERBAL, OBTUNDED, RESPONSIVE TO TACTILE AND PAINFUL STIMULI. NO SIGNS OF PAIN OR DISCOMFORT NOTED AT THIS TIME. PT WITH SH 8 TRACH, TO MECHANICAL VENT, CURRENT SETTINGS: AC 20 TV 550 FIO2 40%, TOLERATING WELL. RESPIRATION UNLABORED AND EVEN, SR ON TELE MONITOR, IV ACCESS IN SHAN AND JAMES ML FLUSHES WELL, INTACT AND PATENT. ON GTF RUNNING JEVITY 1.2 AT 70 CC/HR. NO RESIDUAL VOLUME NOTED. .HOB ELEVATED AT ALL TIMES, ASPIRATION PRECAUTIONS OBSERVED. FC IN PLACE DRAINING CLEAR YELLOW URINE BY GRAVITY. ALL SAFETY PRECAUTIONS IN PLACE: BED LOCKED AND IN LOWEST POSITION. BED ALARM ON, SR UP X 2.
[2022-10-01] MEDS: ACETYLCYSTEINE 10% SOLN 400 MG/4 ML VIAL NEB SCH ×2 (07:48→16:11)
[2022-10-01 08:00] VITALS: BP 116/70
[2022-10-01] MEDS: POTASSIUM CHLORIDE 20 MEQ POWDER PACKET GT SCH (08:15)
[2022-10-01] MEDS: MULTIVIT W/MINERALS 1 TAB TABLET GT SCH (08:15)
[2022-10-01] MEDS: LEVETIRACETAM SOL (5 ML) 100 MG/ML UDC GT SCH (08:15)
[2022-10-01] MEDS: ZINC SULFATE 220 MG CAPSULE GT SCH (08:15)
[2022-10-01] MEDS: FAMOTIDINE (20 MG) 20 MG TABLET GT SCH (08:15)
[2022-10-01] MEDS: DAKINS QUARTER STRENGTH (0.125%) 480 ML BOTTLE TOP SCH (08:16)
[2022-10-01] MEDS: NEO/POLY-B/DEXAM OPHTH SUSP 5 ML BOTTLE LEFTEYE SCH ×3 (08:16→13:05)
[2022-10-01] MEDS: Z GUARD REMEDY 4 OZ OINT TP SCH (08:16)
[2022-10-01] MEDS: PROSOURCE / PROSTAT (PYXIS) 30 ML UDC GT SCH ×2 (08:30→13:09)
--- NOTE | 2022-10-01 09:30 | NUR ---
rn note notified pharmacist that vanco trough is 21. said okay to give vancomycin dose due to adjustment of dose
[2022-10-01 12:00] VITALS: BP 93/60
[2022-10-01] MEDS ORDERED: VANCOMYCIN 1 GM in IV D5W 250 ML IV SCH (12:00)
[2022-10-01 14:41] LABS: ABG BASE EXCESS -3.9 mmol/L; ABG PCO2 44.1 mmHg (35.0-45.0); ABG PH 7.317 (7.350-7.450); ABG PO2 109.9 mmHg (75.0-100.0); COHb 0.3 % (0.5-1.5); MetHb 0.1 % (0.0-1.5); O2Hb 96.6 % (94.0-97.0); SITE, ABG Right Radial; VENT MODE, BG AC 20 550 40% +0
[2022-10-01 16:00] VITALS: BP 114/73
--- NOTE | 2022-10-01 16:30 | NUR ---
rn note ambulance team here. pt low bp in low 88/53. gave midodrine due to low bp 88/53. called back Sol at [facility] and notified her. gave pt midodrine. ambulance rechecked bp and current bp 114/73
[2022-10-01 17:03] VITALS: BP 88/53
[2022-10-01] MEDS: MIDODRINE HCL (5MG) 5 MG TABLET GT PRN (17:03)
--- NOTE | 2022-10-01 17:55 | NUR ---
rn note gave report to Sol cabrera [facility]. subacute unit
--- NOTE | 2022-10-01 17:58 | NUR ---
employee health rn note pt discharged. pt brother signed discharge paperwork and went over discharge instructions. pt brother verbalized understanding.kept picc line and midline in due to pt receiving continuing antibiotics through October 23. removed tele monitor. pt discharged with no belongings since admission.
== END 2022-10-02 06:13 | DRG 710 ==
LOC: ER 16:52 → ICU 20:38 → TELE-TD 09-15 15:44 → ICU 09-15 16:07 → TELE-TD 09-15 16:23 → TELE1 09-16 18:12
PROVIDERS: ADMIT Internal Medicine
PROC: 5A1955Z Respiratory Ventilation, Greater than 96 Consecutive Hours (ICD-10-PCS; principal; 2022-09-11)
PROC: 05H933Z Insertion of Infusion Device into Right Brachial Vein, Percutaneous Approach (ICD-10-PCS; 2022-09-11)
PROC: 0KBN0ZZ Excision of Right Hip Muscle, Open Approach (ICD-10-PCS; 2022-09-14)
PROC: 0KBP0ZZ Excision of Left Hip Muscle, Open Approach (ICD-10-PCS; 2022-09-14)
PROC: 0KBP0ZZ Excision of Left Hip Muscle, Open Approach (ICD-10-PCS; 2022-09-22)
PROC: 0KBN0ZZ Excision of Right Hip Muscle, Open Approach (ICD-10-PCS; 2022-09-22)
PROC: 0KB00ZZ Excision of Head Muscle, Open Approach (ICD-10-PCS; 2022-09-28)
PROC: 0KBP0ZZ Excision of Left Hip Muscle, Open Approach (ICD-10-PCS; 2022-09-30)
PROC: 0KBN0ZZ Excision of Right Hip Muscle, Open Approach (ICD-10-PCS; 2022-09-30)
DX: A41.9 Sepsis, unspecified organism (principal); J96.22 Acute and chronic respiratory failure with hypercapnia; R65.21 Severe sepsis with septic shock; J69.0 Pneumonitis due to inhalation of food and vomit; G93.40 Encephalopathy, unspecified; E87.20 Acidosis, unspecified; J15.6 Pneumonia due to other Gram-negative bacteria; I31.39 Other pericardial effusion (noninflammatory); T17.990A Other foreign object in respiratory tract, part unspecified in causing asphyxiation, initial encounter; L89.154 Pressure ulcer of sacral region, stage 4; L89.814 Pressure ulcer of head, stage 4; R53.2 Functional quadriplegia; L89.319 Pressure ulcer of right buttock, unspecified stage; L89.329 Pressure ulcer of left buttock, unspecified stage; Z99.11 Dependence on respirator [ventilator] status; Z20.822 Contact with and (suspected) exposure to COVID-19; Z86.73 Personal history of transient ischemic attack (TIA), and cerebral infarction without residual deficits; R13.10 Dysphagia, unspecified; Z93.0 Tracheostomy status; Z93.1 Gastrostomy status; I10 Essential (primary) hypertension; K21.9 Gastro-esophageal reflux disease without esophagitis; Y95 Nosocomial condition; J90 Pleural effusion, not elsewhere classified; D64.9 Anemia, unspecified; E11.65 Type 2 diabetes mellitus with hyperglycemia; J98.11 Atelectasis; H11.009 Unspecified pterygium of unspecified eye; E11.69 Type 2 diabetes mellitus with other specified complication; Z79.01 Long term (current) use of anticoagulants; Z79.899 Other long term (current) drug therapy; Z79.51 Long term (current) use of inhaled steroids; M46.28 Osteomyelitis of vertebra, sacral and sacrococcygeal region; L89.891 Pressure ulcer of other site, stage 1; L89.890 Pressure ulcer of other site, unstageable; X58.XXXA Exposure to other specified factors, initial encounter; Y92.129 Unspecified place in nursing home as the place of occurrence of the external cause
CPT/HCPCS: 31720; 36410; 36415; 36600; 70450-TC; 71045-TC; 71250-TC; 72192-TC; 80048-TC; 80053-TC; 80076-TC; 80202-TC; 81001; 82533; 82803-TC; 82962-TC; 83605-TC; 83735-TC; 84100-TC; 84484-TC; 85025-TC; 85610-TC; 85730-TC; 87040-TC; 87081-TC; 87086-TC; 93307-TC; 94003-TC; 94760-TC; 94762-TC; 94799-TC; 99082-TC; A6253; A6403; A7526; C9803; G0378; J0461; J0692; J0696; J1265; J1650; J1815; J1940; J1953; J2310; J2405; J2543; J2765; J3370; J3490; J7030; J7040; J7050; J7060